=== PATIENT | male | born 1960 | race Caucasian/White ===

== ENCOUNTER 2017-04-27 15:18 | Inpatient (IN) ==
[2017-04-27] MEDS ORDERED: Vancomycin 750 MG in D5% in Water 250 ML IVPB ONE (15:46)
[2017-04-27] MEDS ORDERED: Levofloxacin 750 MG/150 ML 750 MG/150 ML BAG IVPB ONE (15:46)
[2017-04-27] MEDS ORDERED: Aztreonam 2,000 MG in Water for inj. (sterile) 20 ML IVP ONE (15:46)
--- NOTE | 2017-04-27 15:57 | Emergency Department Note ---
Disposition Clinical Impression: RACHEL (acute kidney injury), Hypomagnesemia, Hypocalcemia Disposition: Admitted As Inpatient Condition: Fair Referrals: Richa Baron DO [Primary Care Provider] - Forms: ED Satisfaction Letter Time of Disposition: 17:39 General Adult HPI - General Chief complaint: ED Recheck/Abnormal Lab/Rx Stated complaint: Kidney failure Time Seen by Provider: 04/27/17 15:34 Source: patient, family Mode of arrival: ambulatory Limitations: no limitations Nursing Notes Reviewed: Yes Vital Signs Reviewed: Yes - History of Present Illness HPI Narrative: 57-year-old male who presents to the emergency department complaining of abdominal pain and cough and fever. Patient does have lung cancer and currently is undergoing immunotherapy. He has had this for 2 years. He did fail chemotherapy as they said he almost last time he was on that this is approximately 1 year ago. Patient states the last 3-4 days he has not felt well. They do have a fever of 102 as a maximum. He was seen by his primary care physician yesterday where they did a chest x-ray basic labs as well as a stool sample. A stool sample was dropped off today and results are pending. He went to the cancer facility today where they noticed he had an elevated creatinine sent him here for evaluation and most likely admission for fluids and antibiotics. Patient states he was having bilateral lower abdominal abdominal pain. Says that he has had diarrhea but no constipation. No pain with urination. Patient states he is having lower chest pain that only occurs when he is coughing. He says he has had cardiac chest pain before and this is nothing like this according to the patient. Says only occurs when he is coughing. She is unable take a big deep breath. He feels like he has to cough stuff up but nothing comes out. He is not having any purulent sputum. Patient otherwise is not having any complaints including headache, blurry vision, neck pain, back pain, pain or tingling of the arms or legs, generalized weakness, nausea or vomiting. Pain Scale: 0 - Related Data Home Medications Medication Instructions Recorded Confirmed Atorvastatin [Lipitor] 40 mg PO QAM 05/20/15 04/27/17 Paroxetine [Paxil] 30 mg PO DAILY 02/11/17 04/27/17 Sodium Chloride 1 tab PO BID 03/25/17 04/27/17 hydrALAZINE [HydrALAZINE] 25 mg PO TID 03/25/17 04/27/17 Cholestyramine 1 packet PO DAILY 04/27/17 04/27/17 Potassium Chloride [Klor-Con] 20 meq PO DAILY 04/27/17 04/27/17 Previous Rx's Medication Instructions Recorded Metoprolol XL (24 HR) Succ [Toprol 12.5 mg PO QAM #45 tab.er.24h 10/07/16 Xl] Folic Acid 1 tab PO DAILY #30 tablet 01/19/17 Thiamine (B-1) [Vitamin B-1] 100 mg PO DAILY #30 tablet 02/25/17 Omeprazole 20 mg PO DAILY #90 tablet. 03/25/17 Pantoprazole Sodium [Protonix] 40 mg PO DAILY #30 tablet. 03/31/17 Ferrous Sulfate [Iron] 325 mg PO DAILY #30 tablet 04/12/17 Lisinopril [Zestril] 20 mg PO DAILY #30 tab 04/12/17 Allergies Allergy/AdvReac Type Severity Reaction Status Date / Time Penicillins [PCN] Allergy Hives Verified 04/27/17 15:25 Review of Systems: 10 point review of systems done and negative unless otherwise stated in history of present illness. All systems ED: reviewed and negative except as stated. Review of Systems: As Per HPI Past Medical History - Past Medical History Attestation: Yes The following information was validated with the patient. Medical history: Reports: cancer, COPD, coronary artery disease, GERD, myocardial infarction, other Surgical history: Reports: herniorrhaphy (x2) Psychiatric history: Reports: no psych history - Social History Smoking Status: Current some day smoker Smokeless Tobacco Status: No Alcohol use: Reports: occasionally Drug use: Reports: none Physical Exam - General Limitations: no limitations General appearance: alert, in no apparent distress - Head Head exam: atraumatic, normocephalic, normal inspection - Eye Eye exam: Present: normal appearance, PERRL, EOMI - ENT ENT exam: normal exam, normal oropharynx, mucous membranes moist - Neck Neck exam: Present: normal inspection, full ROM, trachea midline - Chest Chest inspection: Present: normal inspection, symmetric chest wall rise - Respiratory Respiratory exam: Present: normal lung sounds bilaterally, wheezes (Mild wheezes throughout.). Absent: respiratory distress, accessory muscle use, prolonged expiratory phase - Cardiovascular Cardiovascular exam: Present: regular rate, normal rhythm, normal heart sounds - Abdominal Exam Abdominal exam: Present: soft, tenderness, normal bowel sounds. Absent: distention, guarding, rebound, rigidity Abdominal tenderness: Present: diffuse, moderate - Extremities Exam Extremities exam: Present: normal inspection, full ROM. Absent: tenderness, pedal edema - Expanded Lower Extremity Exam Neurovascular/Tendon exam: Present: normal capillary refill. Absent: pulse deficit, motor deficit, sensory deficit, tendon deficit - Back Exam Back exam: Present: normal inspection, full ROM. Absent: tenderness, CVA tenderness (R), CVA tenderness (L) - Neurological Exam Neurological exam: Present: alert, oriented X3 - Skin Skin exam: Present: warm, dry, intact, normal color Course Course Narrative: 57-year-old male presents to the ED with elevated creatinine he has a lung cancer patient who is currently getting immunotherapy. Patient was mildly tachycardic and mildly hypotensive at 108/60 after we rechecked one when he got back to his room. Due to the elevated creatinine and immunocompromise we will treat this patient as a septic patient does not currently in septic shock. We will get CBC, BMP, lactate, troponin, hepatic panel, blood cultures, urinalysis , chest x-ray, CT abdomen and pelvis without contrast. We will give him 2 L IV fluids we will place a second large-bore IV. We will also start him on most likely H Medications including Levaquin, aztreonam, vancomycin due to patient having a penicillin allergy. Patient's most likely disposition will be admission. Vital Signs Temperature 97.8 F 04/27/17 15:25 Pulse Rate 96 04/27/17 15:25 Respiratory Rate 16 04/27/17 15:25 Blood Pressure 83/60 04/27/17 15:25 O2 Sat by Pulse Oximetry 99 04/27/17 15:25 Temperature 97.8 F 04/27/17 15:25 Pulse Rate 93 04/27/17 17:02 Respiratory Rate 18 04/27/17 17:02 Blood Pressure 101/69 04/27/17 17:02 O2 Sat by Pulse Oximetry 100 04/27/17 17:02 Oxygen Delivery Oxygen Delivery Room Air Medical Decision Making - [facility] Narrative Medical decision making narrative: 57-year-old male presenting to the emergency department with cough congestion as well as generalized not feeling well. He also is complaining of abdominal pain. He has had no nausea or vomiting. He does have lung cancer and is on immunotherapy. He came here because elevated creatinine. Upon coming here he was tachycardic as well as mildly hypotensive at 108/60 so we decided to start the sepsis protocol and we started him on vancomycin, Levaquin, aztreonam due to him having a penicillin allergy. Once we found out that there was no source of infection we felt that we could stop the vancomycin the Levaquin and aztreonam had already been given at this time. Did do basic labs. We will see a CT abdomen and pelvis which came back showing possible enteritis but no other acute findings. Patient's lab dysuria and elevated creatinine at 4.9 which is abnormal for him. Patient does have acute kidney injury. He also had low magnesium as well as calcium. We did replenish these. N did give him 2 L of fluid for jhis RACHEL. Spoke with the hospitalist Dr. Navarro who agreed to admit the patient for acute kidney injury, hypomagnesemia, hypocalcemia. Explained this to the patient's family and they agree with this plan. They are okay with this. Patient and family are okay with this plan. Patient is now admitted to the hospital service in stable condition. Chest X-Ray 04/27/17 15:47 IMPRESSION: Stable chest without acute process and chronic findings as described. D/ / Liz Thayer MD / Liz Thayer MD Interpreting Provider: Liz Thayer MD Abdomen/Pelvis CT 04/27/17 15:51 IMPRESSION: 1. Fluid-filled loops of distal small bowel and colon with no evidence of obstruction. Pattern may suggest enterocolitis. 2. No significant mucosal changes are identified within the bowel. 3. Chronic pleural thickening is stable in the lower right chest. D/ / Gustavo Gutierrez MD / Gustavo Gutierrez MD Interpreting Provider: Gustavo Gutierrez MD - Medical Records Medical records reviewed: Yes I reviewed the patient's medical records. - Lab Data Lab results reviewed: Yes I reviewed the patient's lab results. Result diagrams: 04/27/17 16:22 04/27/17 16:22 Lab Results 04/27/17 04/27/17 04/27/17 Range/Units 15:45 16:22 16:22 WBC 6.5 (4.3-11.1) K/mcL RBC 3.93 L (4.19-5.50) M/mcL Hgb 13.1 (12.9-16.9) g/dL Hct 39.0 (37.5-50.1) % MCV 99.2 (83.0-100.0) fL MCH 33.3 (28.0-33.3) pg MCHC 33.6 (31.6-35.5) g/dL RDW 13.2 (11.5-14.5) % Plt Count 264 (140-400) K/mcL MPV 8.7 L (9.4-12.4) fL Immature Gran % 0.5 (0-4) % Seg Neutrophils % 67.5 % Lymphocytes % 20.0 % Monocytes % 8.3 % Eosinophils % 2.9 % Basophils % 0.8 % Neutrophils # 4.4 (1.6-8.9) K/mcL Lymphocytes # 1.3 (0.6-4.6) K/mcL Monocytes # 0.5 (0.0-1.3) K/mcL Eosinophils # 0.2 (0.0-0.6) K/mcL Basophils # 0.1 (0.0-0.2) K/mcL PT 12.3 H (9.4-12.1) Seconds INR 1.1 APTT 30.6 (26.0-36.0) Seconds Sodium (136-145) mEq/L Potassium (3.5-4.5) mEq/L Chloride (98-109) mEq/L Carbon Dioxide (19-29) mEq/L BUN (8-26) mg/dL Creatinine (0.72-1.25) mg/dL Est GFR ( Amer) (> 60) Est GFR (Non-Af Amer) (> 60) BUN/Creatinine Ratio (6-26) Glucose (70-99) mg/dL Calculated Osmolality (280-300) Lactic Acid (0.5-2.2) mmol/L Calcium (8.6-10.8) mg/dL Phosphorus (2.3-4.7) mg/dL Magnesium (1.6-2.6) mg/dL Total Bilirubin (0.2-1.2) mg/dL Direct Bilirubin (0.0-0.5) mg/dL Indirect Bilirubin (0.0-1.2) mg/dL AST (5-34) Units/L ALT (0-55) Units/L Alkaline Phosphatase (38-126) Units/L Troponin I (0-0.03) ng/mL Serum Total Protein (6.0-8.3) g/dL Albumin (3.5-5.0) g/dL Globulin (2.4-3.5) g/dL Albumin/Globulin Ratio (1.1-2.2) Ur Specimen Adequacy See below A Urine Color Yellow (Yellow) Urine Clarity Cloudy A (Clear) Urine pH 6.0 (5.0-8.0) pH Units Ur Specific Weston 1.029 H (1.010-1.025) Urine Protein 100 H (Neg-Trace) mg/dL Urine Glucose (UA) Normal (Normal) mg/dL Urine Ketones Negative (Negative) mg/dL Urine Blood Negative (Negative) Urine Nitrite Negative (Negative) Urine Bilirubin Small H (Negative) Urine Urobilinogen Normal (Normal) mg/dL Ur Leukocyte Esterase Negative (Negative) Urine Microscopic RBC 0-3 (0-3) per hpf Urine Microscopic WBC 5-15 H (0-3) per hpf Ur Squamous Epith Cells Many H (None-Few) per lpf Amorphous Sediment Few (Few) Urine Bacteria Moderate H (None-Few) per hpf Hyaline Casts Few (None-Few) per lpf Ur Culture Indicated? NO (NO) 04/27/17 04/27/17 04/27/17 Range/Units 16:22 16:22 16:22 WBC (4.3-11.1) K/mcL RBC (4.19-5.50) M/mcL Hgb (12.9-16.9) g/dL Hct (37.5-50.1) % MCV (83.0-100.0) fL MCH (28.0-33.3) pg MCHC (31.6-35.5) g/dL RDW (11.5-14.5) % Plt Count (140-400) K/mcL MPV (9.4-12.4) fL Immature Gran % (0-4) % Seg Neutrophils % % Lymphocytes % % Monocytes % % Eosinophils % % Basophils % % Neutrophils # (1.6-8.9) K/mcL Lymphocytes # (0.6-4.6) K/mcL Monocytes # (0.0-1.3) K/mcL Eosinophils # (0.0-0.6) K/mcL Basophils # (0.0-0.2) K/mcL PT (9.4-12.1) Seconds INR APTT (26.0-36.0) Seconds Sodium 142 (136-145) mEq/L Potassium 4.2 (3.5-4.5) mEq/L Chloride 109 (98-109) mEq/L Carbon Dioxide 18 L (19-29) mEq/L BUN 36 H (8-26) mg/dL Creatinine 4.90 H (0.72-1.25) mg/dL Est GFR ( Amer) 15 L (> 60) Est GFR (Non-Af Amer) 12 L (> 60) BUN/Creatinine Ratio 7 (6-26) Glucose 100 H (70-99) mg/dL Calculated Osmolality 302 H (280-300) Lactic Acid 1.8 (0.5-2.2) mmol/L Calcium 7.5 L (8.6-10.8) mg/dL Phosphorus 4.8 H (2.3-4.7) mg/dL Magnesium < 0.7 L (1.6-2.6) mg/dL Total Bilirubin 0.3 (0.2-1.2) mg/dL Direct Bilirubin 0.1 (0.0-0.5) mg/dL Indirect Bilirubin 0.2 (0.0-1.2) mg/dL AST 40 H (5-34) Units/L ALT 42 (0-55) Units/L Alkaline Phosphatase 101 (38-126) Units/L Troponin I 0.01 (0-0.03) ng/mL Serum Total Protein 7.9 (6.0-8.3) g/dL Albumin 3.7 (3.5-5.0) g/dL Globulin 4.2 H (2.4-3.5) g/dL Albumin/Globulin Ratio 0.9 L (1.1-2.2) Ur Specimen Adequacy Urine Color (Yellow) Urine Clarity (Clear) Urine pH (5.0-8.0) pH Units Ur Specific Weston (1.010-1.025) Urine Protein (Neg-Trace) mg/dL Urine Glucose (UA) (Normal) mg/dL Urine Ketones (Negative) mg/dL Urine Blood (Negative) Urine Nitrite (Negative) Urine Bilirubin (Negative) Urine Urobilinogen (Normal) mg/dL Ur Leukocyte Esterase (Negative) Urine Microscopic RBC (0-3) per hpf Urine Microscopic WBC (0-3) per hpf Ur Squamous Epith Cells (None-Few) per lpf Amorphous Sediment (Few) Urine Bacteria (None-Few) per hpf Hyaline Casts (None-Few) per lpf Ur Culture Indicated? (NO) - Radiology Data Radiology results reviewed: Yes I reviewed the patient's radiology results. - EKG Data EKG #1 EKG attestation: Yes I reviewed and interpreted this EKG. EKG results narrative: EKG done at 1606 revealed myself and attending shows sinus tachycardia at a rate of 108, DC interval 120, QRS 96, QTC 400 with a normal axis. No signs of ST changes, T-wave abnormalities, heart strain or hypertrophy, heart block, WPW/ Brugada syndrome. This is unchanged when compared with old EKG done 01/14/17. Attestation Statement - Attestation Attestation: I examined this patient and my medical decision-making was reviewed with the Resident Physician. I agree with the documented findings, disposition and treatment plan as described except to the extent set forth below. [id number]-[id number] time provided Patient sent by his oncologist due to an acutely elevated creatinine of 4. The patient has a history of COPD and lung cancer. He failed previous chemotherapy. He is thin and nervous appearing on exam. Blood pressure 108 systolic per my measurement. He does not look toxic
[2017-04-27 16:05] LABS: Bilirubin,Urine Small (Negative); Blood,Urine Negative (Negative); Clarity,Urine Cloudy (Clear); Color,Urine Yellow (Yellow); Glucose,Urine (UA) Normal (Normal); Ketones,Urine Negative (Negative); Leukocyte Esterase,Urine Negative (Negative); Nitrite,Urine Negative (Negative); Protein,Urine 100 mg/dL (Neg-Trace); Specific Gravity,Urine 1.029 (1.010-1.025); Urobilinogen,Urine Normal (Normal)
[2017-04-27 16:07] LABS: RBC,Urine 0-3 per hpf (0-3); Squamous Epithelial Cell,Urine Many per lpf (None-Few)
[2017-04-27] MEDS: 0.9 % Sodium Chloride 1,000 ML IVC SCH (16:15)
[2017-04-27 16:29] LABS: Amorphous Sediment,Urine Few (Few); Bacteria,Urine Moderate per hpf (None-Few); Hyaline Casts,Urine Few per lpf (None-Few)
[2017-04-27 16:31] LABS: Basophils # 0.1 K/mcL (0.0-0.2); Basophils % 0.8 %; Eosinophils # 0.2 K/mcL (0.0-0.6); Eosinophils % 2.9 %; Hemoglobin 13.1 g/dL (12.9-16.9); Immature Granulocytes % 0.5 % (0-4); Lymphocytes # 1.3 K/mcL (0.6-4.6); Mean Corpuscular HGB Conc 33.6 g/dL (31.6-35.5); Mean Corpuscular Hemoglobin 33.3 pg (28.0-33.3); Mean Corpuscular Volume 99.2 fL (83.0-100.0); Mean Platelet Volume 8.7 fL (9.4-12.4); Monocytes # 0.5 K/mcL (0.0-1.3); Monocytes % 8.3 %; Neutrophils # 4.4 K/mcL (1.6-8.9); Platelet Count 264 K/mcL (140-400); Red Blood Count 3.93 M/mcL (4.19-5.50); Red Cell Distribution Width 13.2 % (11.5-14.5); Segmented Neutrophils % 67.5 %
[2017-04-27 16:36] LABS: INR 1.1; Prothrombin Time 12.3 Seconds (9.4-12.1)
[2017-04-27 16:39] LABS: Activated Partial Thrombo Time 30.6 Seconds (26.0-36.0)
[2017-04-27 16:46] LABS: Alanine Aminotransferase 42 Units/L (0-55); Albumin 3.7 g/dL (3.5-5.0); Albumin/Globulin Ratio 0.9 (1.1-2.2); Alkaline Phosphatase 101 Units/L (38-126); Aspartate Amino Transferase 40 Units/L (5-34); BUN/Creatinine Ratio 7 (6-26); Bilirubin,Direct 0.1 mg/dL (0.0-0.5); Bilirubin,Indirect 0.2 mg/dL (0.0-1.2); Bilirubin,Total 0.3 mg/dL (0.2-1.2); Blood Urea Nitrogen 36 mg/dL (8-26); Calcium 7.5 mg/dL (8.6-10.8); Carbon Dioxide 18 mEq/L (19-29); Chloride 109 mEq/L (98-109); Globulin 4.2 g/dL (2.4-3.5); Glucose 100 mg/dL (70-99); Osmolality,Calculated 302 (280-300); Phosphorous 4.8 mg/dL (2.3-4.7); Potassium 4.2 mEq/L (3.5-4.5); Sodium 142 mEq/L (136-145); Total Protein 7.9 g/dL (6.0-8.3); eGFR For African Americans 15 (> 60); eGFR For Non-African Americans 12 (> 60)
[2017-04-27 16:47] LABS: Magnesium < 0.7 mg/dL (1.6-2.6)
[2017-04-27] MEDS ORDERED: Calcium Gluconate 1,000 MG in D5% in Water 100 ML IVPB ONE (17:04)
[2017-04-28] MEDS ORDERED: Naloxone 0.4 MG/ML INJ IVP PRN ×2 (00:36→00:42)
--- NOTE | 2017-04-28 00:48 | Internal Med History&Physical ---
Date of Encounter: 04/27/17 Time of Encounter: 10:00 Assessment and Plan (1) Colitis Current visit: Yes Status: Acute suspect related to PD1 therapy. Consult oncology to eval empiric cipro/flagyl IV, NPO, IVF empiric steroids IV lower suspicion for infectious given clinical course but will send stool studies (2) Acute kidney injury Current visit: Yes Status: Acute suspect pre-renal with diarrhea-profuse , prelim urine lytes consult renal dacosta for I&Os cannot r/o immune nephritis associated with PD1 agent trend Cr , follow clinical course (3) Non-small cell cancer of right lung Current visit: No Status: Chronic hold therapy consult onc Internal Medicine - H&P: HPI Chief complaint: profused diarrhea History of present illness: Patient seen on 04/27/17 at 10 pm Mr. Jimenez is a 57 year old male with lung cancer and getting immunotherapy q2 weeks for the last 1.5 years who presents to the ED after abnormal lab with RACHEL in the setting of diarrhea 15-20x a day of watery , non-bloody diarrhea for the last 1.5 month. Associated with corona-umbilical stomach ache, rate 8/10 with no improving factors. Worsened wth time. Denies worsening SOB, has cough which is better Past Med Surg Social Fam HX - Past Medical History Medical history: cancer, COPD, coronary artery disease, GERD, myocardial infarction, other Psychiatric history: no psych history - Past Surgical History Surgical History: herniorrhaphy - Social History Smoking Status: Current some day smoker Smokeless Tobacco Status: No Alcohol use: occasionally Drug use: none - Family History Mother Family Member Ethnicity: Non- Living Status: Hx Family Cancer: Yes (Colon cancer.) Father Family Member Ethnicity: Non- Living Status: Hx Family Cardiac Disorders: Yes (Aneurysm) Brother Family Member Ethnicity: Non- Living Status: Hx Family Respiratory Disorders: Yes (COPD) Sister Family Member Ethnicity: Non- Living Status: Internal Medicine - H&P: Meds Atorvastatin [Lipitor] 40 mg PO QAM 05/20/15 [History] Metoprolol XL (24 HR) Succ [Toprol Xl] 12.5 mg PO QAM #45 tab.er.24h 10/07/16 [ Rx] Folic Acid 1 tab PO DAILY #30 tablet 01/19/17 [Rx] Paroxetine [Paxil] 30 mg PO DAILY 02/11/17 [History] Thiamine (B-1) [Vitamin B-1] 100 mg PO DAILY #30 tablet 02/25/17 [Rx] Omeprazole 20 mg PO DAILY #90 tablet. 03/25/17 [Rx] Sodium Chloride 1 tab PO BID 03/25/17 [History] hydrALAZINE [HydrALAZINE] 25 mg PO TID 03/25/17 [History] Pantoprazole Sodium [Protonix] 40 mg PO DAILY #30 tablet. 03/31/17 [Rx] Ferrous Sulfate [Iron] 325 mg PO DAILY #30 tablet 04/12/17 [Rx] Lisinopril [Zestril] 20 mg PO DAILY #30 tab 04/12/17 [Rx] Cholestyramine 1 packet PO DAILY 04/27/17 [History] Potassium Chloride [Klor-Con] 20 meq PO DAILY 04/27/17 [History] 3 Allergy/AdvReac Type Severity Reaction Status Date / Time Penicillins [PCN] Allergy Hives Verified 04/27/17 15:25 All Systems PM: A 10-system review of systems was performed and is negative for pertinent findings except as documented above in the HPI. Review of systems: ROS 14 point review of systems reviewed as best as possible given presentation. Pertinent positive or negative as per HPI or otherwise reviewed as negative - Constitutional Vitals: Temp Pulse Resp BP Pulse Ox 98.1 F 83 16 106/70 94 04/27/17 22:55 04/27/17 22:55 04/27/17 22:55 04/27/17 22:55 04/27/17 22:55 Exam: General - AAO x 3 Psych - Appropriate affect/speech. No agitation Eyes - SANTOSH. Eye lids intact. No scleral icterus Heart - Sinus. RRR. S1 and S2 present. No added HS/murmurs appreciated. No elevated JVD appreciated. Lung - Adequate air entry b/l, No crackles/wheezes appreciated GI - Soft, has mild corona-umbilical tendernerss. No guarding or rigidity. No hepatosplenomegaly/ascites. BS+ - No CVA/suprapubic tenderness or palpable bladder distension Skin - Intact. No rash/petechiae/ecchymosis. Warm extremities MSK - Joints with normal ROM. No joint swellings Internal Med - H&P Results - Labs CBC & Chem 7: 04/27/17 16:22 04/27/17 16:22
[2017-04-28] MEDS: Ringers Solution, Lactated 1,000 ML IVC SCH ×2 (01:57→09:08)
[2017-04-28 05:01] LABS: Basophils % 0.5 %; Eosinophils # 0.2 K/mcL (0.0-0.6); Eosinophils % 4.4 %; Hematocrit 31.8 % (37.5-50.1); Immature Granulocytes % 0.5 % (0-4); Lymphocytes % 24.1 %; Mean Corpuscular HGB Conc 32.7 g/dL (31.6-35.5); Mean Corpuscular Hemoglobin 32.5 pg (28.0-33.3); Mean Corpuscular Volume 99.4 fL (83.0-100.0); Mean Platelet Volume 8.7 fL (9.4-12.4); Monocytes # 0.5 K/mcL (0.0-1.3); Monocytes % 11.1 %; Neutrophils # 2.6 K/mcL (1.6-8.9); Platelet Count 202 K/mcL (140-400); Red Cell Distribution Width 13.1 % (11.5-14.5); Segmented Neutrophils % 59.4 %
[2017-04-28 05:04] LABS: Hemoglobin 10.4 g/dL (12.9-16.9)
[2017-04-28 05:10] LABS: Albumin 2.9 g/dL (3.5-5.0); Bilirubin,Direct 0.1 mg/dL (0.0-0.5); Bilirubin,Indirect 0.1 mg/dL (0.0-1.2); Bilirubin,Total 0.2 mg/dL (0.2-1.2); Calcium 7.6 mg/dL (8.6-10.8); Magnesium 1.1 mg/dL (1.6-2.6)
[2017-04-28 05:13] LABS: Total Protein 5.9 g/dL (6.0-8.3)
[2017-04-28] MEDS: *HR* Heparin 5,000 UNIT/ML VIAL SQ SCH ×2 (05:39→17:28)
--- NOTE | 2017-04-28 08:16 | Event Note ---
Date of Encounter: 04/28/17 Time of Encounter: 08:[address] Howard's. 3B charge nurse Yazmin notified and Dr. Romano notified.
[2017-04-28] MEDS: 0.9 % Sodium Chloride 1,000 ML IVC SCH (09:04)
[2017-04-28] MEDS: MetroNIDAZOLE 500 MG/100 ML 500 MG/100 ML BAG IVPB SCH ×2 (09:08→17:27)
[2017-04-28] MEDS: Metoprolol XL (24 HR) Succ 25 MG TAB.ER.24H PO SCH (09:09)
[2017-04-28] MEDS: methylPREDNISolone 125 MG/2 ML VIAL IVP SCH ×2 (09:09→22:33)
[2017-04-28] MEDS ORDERED: 0.9 % Sodium Chloride 1,000 ML IVC SCH (10:00)
[2017-04-28 12:15] LABS: Protein/Creatinine Ratio,Urine 0.24 mg/mg (0-0.20)
--- NOTE | 2017-04-28 12:19 | Gastroenterology Consult Note ---
<Michael Mccollum - Last Filed: 04/28/17 12:16> Date of Encounter: 04/28/17 Time of Encounter: 11:05 - Assessment and plan (1) Colitis Current Visit: Yes Status: Acute Assessment and plan: CT A/P showed fluid filled loops of distal small bowel and colon, no obstruction suggestive of enterocolitis. No mucosal changes noted in the bowel. Continue Cipro and Flagyl for now. (2) Diarrhea Current Visit: Yes Status: Acute Assessment and plan: Pt with 15-20 episodes of diarrhea with no melena or hematochezia. Complete stool testing. Recommend daily fiber supplement for now. If stool testing negative, consider Imodium 1-2 tablets TID. Qualifiers: Diarrhea type: unspecified type Qualified Code(s): R19.7 - Diarrhea, unspecified (3) History of lung cancer Current Visit: No Status: Acute - Time Spent With Patient Total time spent is greater than 50% in coordination of care (as documented) at patient's floor/unit and/or counseling patient: GI History of Present Illness - Data of Consult Patient: new to practice Consult date: 04/28/17 Requesting Physician: Thu Candelario CNP - Consult Narrative Reason for consult: colitis History of present illness: Mr. Jimenez is a 57 year old male with PMHx of lung cancer (receiving immunotherapy), COPD, CAD, GERD, AL presented to the ED with abdominal pain, diarrhea, cough, and fever. [facility] with elevated creatinine. On arrival he was tachycardic and mildly hypotensive, and was started on IV antibiotics. CT A/P showed fluid filled loops of distal small bowel and colon, no obstruction suggestive of enterocolitis. No mucosal changes noted in the bowel. He started on Cipro and Flagyl for the enteritis. Stool studies have been ordered. He reports 15-20 episodes of diarrhea daily for the past "couple of weeks". he denies melena or hematochezia. Procedures: EGD 01/08/2015 Dr. Olivares: Irregular Z-line, small hiatus hernia, acute gastritis. NSAIDs: None Anticoagulation: None Past Med Surg Social Fam HX - Past Medical History Medical history: cancer, COPD, coronary artery disease, GERD, myocardial infarction, other Psychiatric history: no psych history - Past Surgical History Surgical History: herniorrhaphy - Social History Smoking Status: Current some day smoker Smokeless Tobacco Status: No Alcohol use: occasionally Drug use: none - Family History Mother Family Member Ethnicity: Non- Living Status: Hx Family Cancer: Yes (Colon cancer.) Father Family Member Ethnicity: Non- Living Status: Hx Family Cardiac Disorders: Yes (Aneurysm) Brother Family Member Ethnicity: Non- Living Status: Hx Family Respiratory Disorders: Yes (COPD) Sister Family Member Ethnicity: Non- Living Status: - Gastrointestinal Gastrointestinal: Present: as per HPI - Constitutional Constitutional: as per HPI - EENT Eyes: as per HPI Ears: Present: as per HPI Nose, mouth and throat: Present: as per HPI - Cardiovascular Cardiovascular ROS: Present: as per HPI - Respiratory Respiratory IM: Present: as per HPI - Genitourinary Genitourinary: Absent: change in color, Urinary frequency - Neurological ROS Neurological GI: Present: as per HPI - Hematologic/Lymphatic Hematologic/Lymphatic pediatric: Present: as per HPI - Musculoskeletal Musculoskeletal ROS GI: Present: as per HPI - Integumentary Integumentary GI: Present: as per HPI - Psychiatric ROS Psychiatric GI: Present: as per HPI - Endocrine Endocrine IM: Present: as per HPI - Constitutional Vitals: Temp Pulse Resp BP Pulse Ox 97.9 F 82 16 123/75 92 04/28/17 10:51 04/28/17 10:51 04/28/17 10:51 04/28/17 10:51 04/28/17 10:51 General appearance: Present: cooperative, A&O X 3, no acute distress, answers questions appropriately - Head Head exam: Present: atraumatic, normocephalic - Eye Eye exam: Present: normal appearance, sclera anicteric - ENT ENT exam: Present: mucous membranes dry - Neck Neck exam general surgery: Present: normal inspection, trachea midline - Respiratory Respiratory exam: Present: CTAB - Cardiovascular Cardiovascular exam: Present: RRR, +S1, +S2 - GI/Abdominal GI/Abdominal exam: Present: soft, tenderness (generalized), no peritoneal signs. Absent: distended, firm, guarding - Rectal Rectal exam: Present: deferred - Extremities Exam Extremities exam: Present: warm - Neurological Exam Neurological exam: Present: no focal deficits - Psychiatric Psychiatric exam: Present: normal affect, normal mood - Skin Skin exam: Present: dry, intact, normal color, warm Results - Labs CBC & Chem 7: 04/28/17 04:40 04/28/17 04:40 Labs: Last Result Calcium 7.6 mg/dL (8.6-10.8) L 04/28/17 04:40 Troponin I 0.01 ng/mL (0-0.03) 04/27/17 16:22 Entire Visit Hgb 10.4 g/dL (12.9-16.9) L D 04/28/17 04:40 Hct 31.8 % (37.5-50.1) L 04/28/17 04:40 PT 12.3 Seconds (9.4-12.1) H 04/27/17 16:22 Total Bilirubin 0.2 mg/dL (0.2-1.2) 04/28/17 04:40 AST 26 Units/L (5-34) 04/28/17 04:40 ALT 29 Units/L (0-55) 04/28/17 04:40 - ABG ABG results: PT/INR, D-dimer PT 12.3 Seconds (9.4-12.1) H 04/27/17 16:22 Consult Discharge Plan - Plan Referrals: Richa Baron DO [Primary Care Provider] - <Hector Hsu - Last Filed: 04/28/17 18:02> Date of Encounter: 04/28/17 Time of Encounter: 18:00 - Time Spent With Patient Total time spent is greater than 50% in coordination of care (as documented) at patient's floor/unit and/or counseling patient: GI History of Present Illness - Data of Consult Requesting Physician: Thu Candelario CNP - Consult Narrative History of present illness: Mr. Jimenez is a 57 year old male - Constitutional Vitals: Temp Pulse Resp BP Pulse Ox 97.9 F 85 16 136/84 95 04/28/17 15:38 04/28/17 15:38 04/28/17 15:38 04/28/17 15:38 04/28/17 15:38 Results - Labs CBC & Chem 7: 04/28/17 04:40 04/28/17 04:40 Labs: Last Result Calcium 7.6 mg/dL (8.6-10.8) L 04/28/17 04:40 Troponin I 0.01 ng/mL (0-0.03) 04/27/17 16:22 Entire Visit Hgb 10.4 g/dL (12.9-16.9) L D 04/28/17 04:40 Hct 31.8 % (37.5-50.1) L 04/28/17 04:40 PT 12.3 Seconds (9.4-12.1) H 04/27/17 16:22 Total Bilirubin 0.2 mg/dL (0.2-1.2) 04/28/17 04:40 AST 26 Units/L (5-34) 04/28/17 04:40 ALT 29 Units/L (0-55) 04/28/17 04:40 - ABG ABG results: PT/INR, D-dimer PT 12.3 Seconds (9.4-12.1) H 04/27/17 16:22 - Attending Attestation I examined this patient and my medical decision-making was reviewed with the Resident Physician. I agree with the documented findings, disposition and treatment plan as described except to the extent set forth below.
--- NOTE | 2017-04-28 14:15 | Oncology Inp Consult Note ---
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 Agree with steroids. His bowel movements are significantlky reduced and already become more formed at this time. I do not suspect any infectious etiology and thus his abx can likely be discontinued. continue steroids and plan for at least 2 week taper after discharge. (2) Prerenal azotemia Status: Acute Assessment and plan: I dont suspect immune mediated nephritis. Rather, his frequency of diarrhea worsed in the past 7-10 days prior to admission. given his preexisting renal dysfunction and the ensuing dehydration and concomittant weight loss, it is not surprising for someone to have developed a creatinine of 4.8. Therefore, agree with hydration. (3) Acute kidney injury Status: Acute Assessment and plan: improving. Creatinein 4.05 down from 4.8 on admission. continue to monitor. (4) Lung cancer Status: Chronic Assessment and plan: He will need his nivolumab on hold for the moment. Given that this is his first episode of an immune mediated problem and that he has responded so well to steroids, I anticipate that he should be able to contiue nivolumab after a steroid taper. Of course, I will defer that ultimate decision to his primary oncologist Qualifiers: Laterality: right Qualified Code(s): C34.81 - Malignant neoplasm of overlapping sites of right bronchus and lung (5) CKD (chronic kidney disease) stage 3, GFR 30-59 ml/min Status: Chronic Assessment and plan: as above (6) Adenocarcinoma of right lung Status: Chronic Assessment and plan: CT C/a/p KURT as of last evaluation. - Data of Consult Requesting Physician: Thu Candelario CNP Primary Care Provider: Richa Baron, - Consult Narrative Reason for consult: diarrhea, renal failure while on nivolumab History of present illness: Mr. Jimenez is a 57 year old male who is on nivolumab for metastatic NSCLC and was in [facility] until 2months ago when he started to develop diarrhea. It was very watery. He would have 15-20 BMs per day. He indicated to his that he did not want the doctors to know. His last dose of nivolumab was 1 month ago and he missed his dose 2 weeks ago because of scheduling issues. 3 weeks ago, he informed his group exercise manager about the diarrhea and was recommended cholestyramine. It did not work. Then 1 weeks ago, he developed a viral infection contracted from his . THe diarrhe became very intense at that time. He has lost 6 pounds in 1 week. He came to clinic yesterday for his next nivolumab infusion but was noted to have a Creatinine of 4.8. He was thus sent to the ER and was admitted for likely nivolumab induced colitis and possible nivolumab induced nephritis vs. pre-renal azotemia. He was then started on methylpred this morning. He has had only 3 BM 3x since this time. The BM are still loose but not watery. We are consulted regarding possible sequelae of nivolumab. Past Med Surg Social Fam HX - Past Medical History Medical history: cancer, COPD, coronary artery disease, GERD, myocardial infarction, other Psychiatric history: no psych history - Past Surgical History Surgical History: herniorrhaphy - Social History Smoking Status: Current some day smoker Smokeless Tobacco Status: No Alcohol use: occasionally Drug use: none - Family History Mother Family Member Ethnicity: Non- Living Status: Hx Family Cancer: Yes (Colon cancer.) Father Family Member Ethnicity: Non- Living Status: Hx Family Cardiac Disorders: Yes (Aneurysm) Brother Family Member Ethnicity: Non- Living Status: Hx Family Respiratory Disorders: Yes (COPD) Sister Family Member Ethnicity: Non- Living Status: Medications and Allergies Atorvastatin [Lipitor] 40 mg PO QAM 05/20/15 [History] Metoprolol XL (24 HR) Succ [Toprol Xl] 12.5 mg PO QAM #45 tab.er.24h 10/07/16 [ Rx] Folic Acid 1 tab PO DAILY #30 tablet 01/19/17 [Rx] Paroxetine [Paxil] 30 mg PO DAILY 02/11/17 [History] Thiamine (B-1) [Vitamin B-1] 100 mg PO DAILY #30 tablet 02/25/17 [Rx] Omeprazole 20 mg PO DAILY #90 tablet. 03/25/17 [Rx] Sodium Chloride 1 tab PO BID 03/25/17 [History] hydrALAZINE [HydrALAZINE] 25 mg PO TID 03/25/17 [History] Pantoprazole Sodium [Protonix] 40 mg PO DAILY #30 tablet. 03/31/17 [Rx] Ferrous Sulfate [Iron] 325 mg PO DAILY #30 tablet 04/12/17 [Rx] Lisinopril [Zestril] 20 mg PO DAILY #30 tab 04/12/17 [Rx] Cholestyramine 1 packet PO DAILY 04/27/17 [History] Potassium Chloride [Klor-Con] 20 meq PO DAILY 04/27/17 [History] 3 Allergy/AdvReac Type Severity Reaction Status Date / Time Penicillins [PCN] Allergy Hives Verified 04/27/17 15:25 All systems: reviewed and no additional remarkable complaints except as stated Constitutional: Present: fever(s). Absent: chills, excessive sweating, weight loss Eyes: Absent: other visual disturbances Nose, mouth and throat: Present: dizziness. Absent: vertigo Additional comments: dizziness has resolved now Cardiovascular: Present: chest pain Additional comments: from coughing from the cold Respiratory: Present: cough, dyspnea, pain with cough Gastrointestinal: Present: as per HPI, abdominal pain Musculoskeletal: Absent: myalgias Neurological: Absent: other visual disturbances Oncology - Exam - Constitutional Vitals: Temp Pulse Resp BP Pulse Ox 97.9 F 82 16 123/75 92 04/28/17 10:51 04/28/17 10:51 04/28/17 10:51 04/28/17 10:51 04/28/17 10:51 Oncology - Results Labs: Short CBC 04/28/17 Range/Units 04:40 WBC 4.3 (4.3-11.1) K/mcL Hgb 10.4 L D (12.9-16.9) g/dL Hct 31.8 L (37.5-50.1) % Plt Count 202 (140-400) K/mcL Neutrophils # 2.6 (1.6-8.9) K/mcL BMP 04/28/17 04:40 Sodium 141 Potassium 4.0 Chloride 113 H Carbon Dioxide 17 L BUN 35 H Creatinine 4.05 H Glucose 90 Calcium 7.6 L Liver Function 04/28/17 Range/Units 04:40 Total Bilirubin 0.2 (0.2-1.2) mg/dL Direct Bilirubin 0.1 (0.0-0.5) mg/dL AST 26 (5-34) Units/L ALT 29 (0-55) Units/L Alkaline Phosphatase 77 (38-126) Units/L Albumin 2.9 L D (3.5-5.0) g/dL Consult Discharge Plan - Plan Referrals: Richa Baron DO [Primary Care Provider] -
--- NOTE | 2017-04-28 16:38 | Nephrology Consult Note ---
Date of Encounter: 04/28/17 Time of Encounter: 16:30 Assessment and Plan (1) Acute kidney injury Status: Acute Elevated SCr in he setting of profound diarrhea likely pre-renal vs nivolumab related Agree with aggressive volume repletion Agree with holding any nephrotoxins if possible Will check uric acid and cpk levels Urine sodium, eosinophil and protein results noted (2) Hypomagnesemia Status: Acute Will replete magnesium slowly iv today (3) CKD (chronic kidney disease) stage 3, GFR 30-59 ml/min Status: Chronic Baseline GFR in the 30-40s (4) Lung cancer Status: Chronic Qualifiers: Laterality: right Qualified Code(s): C34.01 - Malignant neoplasm of right main bronchus History of Present Illness - Reason for Consult Consult date: 04/28/17 Acute Kidney Injury, Chronic Kidney Disease Requesting physician: Melody Arceo - History of Present Illness 57 y o male with PMH of stage [address] Howard and metastatic NSCLC on nivolumab admitted after being sent from the cancer center for elevated SCr from baseline. SCr noted at 4.7, GFR 13 and previously 1.89, GFR 37 as of march. Pt apparently was having significant diarrhea for sometime felt to be from nivolumab but worse when he contracted a viral infection with BMs up to 15 time a day. He tried to stay hydrated with gatorade as much as possible. CT abd/pelvis with no iv contrast showed colitis. No NSAIDs use. Pt seen and examined with at bedside Past Med Surg Social Fam HX - Past Medical History Medical history: cancer, COPD, coronary artery disease, GERD, myocardial infarction, other Psychiatric history: no psych history - Past Surgical History Surgical History: herniorrhaphy - Social History Smoking Status: Current some day smoker Smokeless Tobacco Status: No Alcohol use: occasionally Drug use: none - Family History Mother Family Member Ethnicity: Non- Living Status: Hx Family Cancer: Yes (Colon cancer.) Father Family Member Ethnicity: Non- Living Status: Hx Family Cardiac Disorders: Yes (Aneurysm) Brother Family Member Ethnicity: Non- Living Status: Hx Family Respiratory Disorders: Yes (COPD) Sister Family Member Ethnicity: Non- Living Status: Medications and Allergies Atorvastatin [Lipitor] 40 mg PO QAM 05/20/15 [History] Metoprolol XL (24 HR) Succ [Toprol Xl] 12.5 mg PO QAM #45 tab.er.24h 10/07/16 [ Rx] Folic Acid 1 tab PO DAILY #30 tablet 01/19/17 [Rx] Paroxetine [Paxil] 30 mg PO DAILY 02/11/17 [History] Thiamine (B-1) [Vitamin B-1] 100 mg PO DAILY #30 tablet 02/25/17 [Rx] Omeprazole 20 mg PO DAILY #90 tablet. 03/25/17 [Rx] Sodium Chloride 1 tab PO BID 03/25/17 [History] hydrALAZINE [HydrALAZINE] 25 mg PO TID 03/25/17 [History] Pantoprazole Sodium [Protonix] 40 mg PO DAILY #30 tablet. 03/31/17 [Rx] Ferrous Sulfate [Iron] 325 mg PO DAILY #30 tablet 04/12/17 [Rx] Cholestyramine 1 packet PO DAILY 04/27/17 [History] Potassium Chloride [Klor-Con] 20 meq PO DAILY 04/27/17 [History] Loperamide [Imodium] 2 mg PO Q2H PRN #30 capsule 04/29/17 [Rx] predniSONE [Prednisone] 10 mg PO DAILY #40 tab.ds.pk 04/29/17 [Rx] 3 Allergy/AdvReac Type Severity Reaction Status Date / Time Penicillins [PCN] Allergy Hives Verified 04/27/17 15:25 Review of Systems All Systems: reviewed and no additional remarkable complaints except as stated ( 10 systems noted in HPI) Exam - Vital Signs Vital signs: Initial Vital Signs Temp Pulse Resp BP Pulse Ox 97.8 F 96 16 83/60 99 04/27/17 15:25 04/27/17 15:25 04/27/17 15:25 04/27/17 15:25 04/27/17 15:25 Vital Signs - Last 8 Hours Temp Pulse Resp BP Pulse Ox 04/28/17 15:38 97.9 F 85 16 136/84 95 04/28/17 10:51 97.9 F 82 16 123/75 92 04/28/17 09:00 92 Intake and Output 04/28/17 04/28/17 04/28/17 07:59 15:59 23:59 Intake Total 1000 / 1000 1840 / 1840 Balance 1000 / 1000 1840 / 1840 Intake: IV Fluids 1000 / 1000 1200 / 1200 0.9 % Sodium Chloride 1,000 ML 1000 / 1000 @ 3750 mls/hr IVC .Q16M [facility] Rx# :[id number] Lactated Ringers 1,000 ML @ 150 1000 / 1000 mls/hr IVC .Q6H40M [facility] Rx#: [id number] Cipro Premix 400 MG/200 ML 400 200 / 200 mg In 200 ml @ 200 mls/hr IVPB Q12HR [facility] Rx#:[id number] Oral 640 / 640 Other: Meal Lunch Percent of Meal Consumed 90% Weight 52.435 kg Patient Weight 04/28/17 23:59 Weight 52.435 kg - General Appearance General appearance: frail EENT: ATNC, mucous membranes moist Neck: no JVD, supple Additional Comments: good areation ant bilat Cardiology: no edema, normal S1, normal S2 Gastrointestinal: no tenderness, no guarding Integumentary: warm and dry Neurologic: no focal deficit Musculoskeletal: no deformities Psychiatric: mood/affect appropriate, cooperative Results - Lab Results 04/29/17 04:37 04/29/17 04:37 Most recent lab results Calcium 7.6 mg/dL (8.6-10.8) L 04/28/17 04:40 Phosphorus 4.8 mg/dL (2.3-4.7) H 04/27/17 16:22 Magnesium 1.1 mg/dL (1.6-2.6) L 04/28/17 04:40 Urine Creatinine 183 mg/dL 04/28/17 10:32 Urine Sodium 101.0 mEq/L 04/28/17 10:32 Urine Total Protein 43 mg/dL (1-14) H 04/28/17 10:32 Consult Discharge Plan - Plan Instructions: Loperamide (By mouth), Prednisone (By mouth), Acute Kidney Injury (DC), Hypomagnesemia (DC), Infectious Colitis, Material Damage Adjuster (GEN) Additional Instructions: Please follow-up with your family doctor, compensation and benefits administrator and oncologists within 1- 2 weeks. You need to have a repeat complete metabolic panel drawn in approximately one week Referrals: Willy Caicedo DO [Resident] - 05/10/17 10:00 am Dc Mukherjee MD [Partnered Physician] - 05/11/17 10:00 am (You have a treatment this day. Dr. Mukherjee will come and see you during your treatment.) Melchor Howard, [Partnered Physician] - 05/30/17 10:30 am Prescriptions: Loperamide [Imodium] 2 mg PO Q2H PRN #30 capsule PRN Reason: Diarrhea predniSONE [Prednisone] 10 mg PO DAILY #40 tab.ds.pk
--- NOTE | 2017-04-28 16:39 | Electrocardiograph Report ---
[place] [id number] Test Date: 2017-04-27 Pat Name: Erik Jimenez Department: 103 Room: 3B Gender: M Roller Hand: EKP : 1960 Requested By: César Mansfield Order Number: [id number] Reading MD: Jennifer Oliva Measurements Intervals [place] Rate: 108 P: 80 CO: 120 QRS: 45 QRSD: 96 T: 71 QT: 336 QTc: 400 Interpretive Statements SINUS TACHYCARDIA WITH OCCASIONAL SUPRAVENTRICULAR PREMATURE COMPLEXES ABNORMAL RHYTHM ECG Electronically Signed On 04-28-2017 16:37:54 EST by Jennifer Oliva
--- NOTE | 2017-04-28 16:45 | Internal Med Progress Note ---
Date of Encounter: 04/28/17 Time of Encounter: 16:45 - Time Spent With Patient Acute on chronic kidney disease: hx stage 3 CKD. Follows with Nephrology. Cr 4.7 , GFR 13. Multifactorial with nivolumab and GI losses secondary to loose stools. Improvement in renal function noted with IV fluids. Cont IV fluids for now. Nephrology consulted Hypomagnesia: Mg 0.7 on arrival; likely secondary to Nivolumab. Replacement ordered. Monitor repeat Mg levels Colitis: CT A/P showed fluid filled loops of distal small bowel and colon, no obstruction, suggestive of enterocolitis. No mucosal changes noted in the bowel. Reports multiple loose, watery stools daily. Stool cultures negative. Likely immune mediated colitis form nivolumab. Does not appear acutely toxic. Continue clear liquid as tolerated. Evaluated by oncology who did not suspect infectious etiology, stop Flagyl, Cipro. Continue IV steroids; will need 2 week taper at discharge. Add PRN immodium. Oncology and GI following. Non-small cell right lung cancer: per hx. Nivolumab on hold. Will need to follow-up with primary oncologist at discharge. less than 15 minutes - Subjective Interval history: Seen and examined at bedside, patient is new to me. Information obtained from chart review and patient report. Patient says he was sent to Hospital from oncology office due to abnormal labs. He does report multiple loose watery stools daily for the past 2 or 3 months. Says he has intermittent lower abdominal pain its worse with bowel movements. He does have an appetite and feels like he wants to eat. No chest pain or shortness of breath. He is making urine but feels not as much as he should be. - Constitutional Vitals: Temp Pulse Resp BP Pulse Ox 97.9 F 85 16 136/84 95 04/28/17 15:38 04/28/17 15:38 04/28/17 15:38 04/28/17 15:38 04/28/17 15:38 General appearance: Present: cachectic, A&O X 3, no acute distress - Head Head exam: Present: atraumatic, normocephalic - Eye Eye exam: Present: PERRL, conjuntiva pink, sclera anicteric Pupils: Present: PERRL - Neck Neck exam general surgery: Present: supple, trachea midline. Absent: lymphadenopathy - Respiratory Respiratory exam: Present: CTAB. Absent: accessory muscle use, rales, rhonchi, wheezes - Cardiovascular Cardiovascular exam: Present: RRR, +S1, +S2. Absent: diastolic murmur, gallop, rubs, systolic murmur - GI/Abdominal GI/Abdominal exam: Present: normal bowel sounds, soft, no peritoneal signs. Absent: distended, tenderness - Extremities Exam Extremities exam: Present: warm, radial pulses palpable and symmetrical. Absent : calf tenderness, cyanotic, pedal edema - Neurological Exam Neurological exam: Present: CN II-XII intact, oriented X3, no focal deficits. Absent: pronater drift, facial droop, speech deficit - Skin Skin exam: Present: dry, intact Internal Medicine: Result - Labs CBC & Chem 7: 04/28/17 04:40 04/28/17 04:40 Labs: Short CBC 04/28/17 Range/Units 04:40 WBC 4.3 (4.3-11.1) K/mcL Hgb 10.4 L D (12.9-16.9) g/dL Hct 31.8 L (37.5-50.1) % Plt Count 202 (140-400) K/mcL Neutrophils # 2.6 (1.6-8.9) K/mcL BMP 04/28/17 04:40 Sodium 141 Potassium 4.0 Chloride 113 H Carbon Dioxide 17 L BUN 35 H Creatinine 4.05 H Glucose 90 Calcium 7.6 L Liver Function 04/28/17 Range/Units 04:40 Total Bilirubin 0.2 (0.2-1.2) mg/dL Direct Bilirubin 0.1 (0.0-0.5) mg/dL AST 26 (5-34) Units/L ALT 29 (0-55) Units/L Alkaline Phosphatase 77 (38-126) Units/L Albumin 2.9 L D (3.5-5.0) g/dL - ABG Interpretation ABG results: PT/INR, D-dimer PT 12.3 Seconds (9.4-12.1) H 04/27/17 16:22 Consult Discharge Plan - Plan Referrals: Richa Baron DO [Primary Care Provider] -
[2017-04-28 18:17] LABS: Uric Acid 11.3 mg/dL (3.5-7.2)
[2017-04-29] MEDS: MetroNIDAZOLE 500 MG/100 ML 500 MG/100 ML BAG IVPB SCH ×2 (00:58→09:08)
[2017-04-29 05:02] LABS: Hematocrit 28.7 % (37.5-50.1); Hemoglobin 9.5 g/dL (12.9-16.9); Immature Granulocytes % 0.3 % (0-4); Lymphocytes # 0.3 K/mcL (0.6-4.6); Lymphocytes % 9.2 %; Mean Corpuscular HGB Conc 33.1 g/dL (31.6-35.5); Mean Corpuscular Hemoglobin 32.3 pg (28.0-33.3); Mean Corpuscular Volume 97.6 fL (83.0-100.0); Mean Platelet Volume 8.9 fL (9.4-12.4); Monocytes # 0.1 K/mcL (0.0-1.3); Monocytes % 1.8 %; Platelet Count 206 K/mcL (140-400); Red Blood Count 2.94 M/mcL (4.19-5.50); Red Cell Distribution Width 12.4 % (11.5-14.5); Segmented Neutrophils % 88.7 %
[2017-04-29 05:07] LABS: Albumin 2.9 g/dL (3.5-5.0); Bilirubin,Direct 0.1 mg/dL (0.0-0.5); Bilirubin,Indirect 0.1 mg/dL (0.0-1.2); Bilirubin,Total 0.2 mg/dL (0.2-1.2); Calcium 7.6 mg/dL (8.6-10.8); Globulin 2.9 g/dL (2.4-3.5); Magnesium 1.5 mg/dL (1.6-2.6); Potassium 4.6 mEq/L (3.5-4.5); Total Protein 5.8 g/dL (6.0-8.3)
[2017-04-29] MEDS: *HR* Heparin 5,000 UNIT/ML VIAL SQ SCH (05:26)
[2017-04-29] MEDS: Metoprolol XL (24 HR) Succ 25 MG TAB.ER.24H PO SCH (09:07)
[2017-04-29] MEDS: methylPREDNISolone 125 MG/2 ML VIAL IVP SCH (09:08)
--- NOTE | 2017-04-29 10:30 | Nephrology Progress Note ---
Date of Encounter: 04/29/17 Time of Encounter: 09:45 - Assessment and Plan (1) Acute kidney injury Current Visit: Yes Status: Acute Nonoliguria RACHEL on CKD stage III. RACHEL was pre-renal from diarrhea that was most likely secondary to chemo. Now rapidly trending better in terms of renal function -- no need for COOPERATIVE MANAGER. The IVF with 0.9% saline has induced a mild hyperchloremic dilutional acidosis, so if he were to not be discharged and remain hospitalized, then I would recommend he receive 1/2NS+75mEq bicarb IVF (which is an isotonic solution) for correction of the acidosis and volume expansion. However, since he easily eating , drinking and improving with renal function; it would be reasonable to discharge today from a nephrology perspective. I would recommend he have a BMP checked in about 1 week after discharge. I'll ask my team to help schedule a hospital follow up with him in about 2 weeks. Continue to follow a renal protective strategy as able: avoid IV contrast, Bactrim, NSAIDs and etc. Lung Ca as per Onc. Anemia: monitoring and following Onc. Thank you. (2) CKD (chronic kidney disease) stage 3, GFR 30-59 ml/min Current Visit: No Status: Chronic (3) Colitis Current Visit: Yes Status: Acute (4) Anemia of chronic disease Current Visit: No Status: Acute (5) History of lung cancer Current Visit: No Status: Acute Subjective Principal diagnosis: RACHEL from Diarrhea Interval history: Pt was s/e earlier today. He did not affirm N/V and has less watery stools -- starting to become more solid and his suprapubic pain has resolved, he affirmed. No flank pains, and no dysuria, he affirmed. He has a good appetite and he said he was eating his second breakfast. He voiced hope to discharge today. Objective - Vital Signs Vital signs: Vital Signs Temp Pulse Resp BP Pulse Ox 04/29/17 07:38 97.6 F 97 18 110/72 95 04/29/17 02:52 97.8 F 78 16 133/79 94 04/28/17 23:19 97.8 F 79 16 125/74 94 04/28/17 18:45 97.3 F L 79 16 129/77 97 04/28/17 15:38 97.9 F 85 16 136/84 95 04/28/17 10:51 97.9 F 82 16 123/75 92 Intake and Output 04/28/17 04/29/17 04/29/17 23:59 07:59 15:59 Intake Total 200 / 200 420 / 420 Output Total 500 / 500 Balance -300 / -300 420 / 420 Intake: IV Fluids 200 / 200 100 / 100 Cipro Premix 200 MG/100 ML 200 100 / 100 mg In 100 ml @ 100 mls/hr IVPB Q12HR [facility] Rx#:[id number] Flagyl Premix 500 MG/100 ML 500 100 / 100 100 / 100 mg In 100 ml @ 100 mls/hr IVPB Q8HR [facility] Rx#:[id number] Oral 320 / 320 Output: Urine 500 / 500 Other: Meal Breakfast Percent of Meal Consumed 100% Weight 52.481 kg Patient Weight 04/29/17 23:59 Weight 52.481 kg - General Appearance General appearance: Present: well-developed, appears started age, cachectic EENT: Present: ATNC, PERRL, mucous membranes moist Neck: Present: supple Respiratory: Present: clear Cardiology: Present: no edema, regular rate, regular rhythm, normal S1, normal S2 Gastrointestinal: Present: normoactive bowel sounds, no tenderness, no guarding Integumentary: Present: no rash, warm and dry Neurologic: Present: no focal deficit, no asterixis, alert and oriented x3 Musculoskeletal: Present: no deformities, no erythema, no cyanosis Psychiatric: Present: mood/affect appropriate, cooperative - Lab 04/29/17 04:37 04/29/17 04:37 Most recent lab results Calcium 7.6 mg/dL (8.6-10.8) L 04/29/17 04:37 Phosphorus 4.8 mg/dL (2.3-4.7) H 04/27/17 16:22 Magnesium 1.5 mg/dL (1.6-2.6) L 04/29/17 04:37 Urine Creatinine 183 mg/dL 04/28/17 10:32 Urine Sodium 101.0 mEq/L 04/28/17 10:32 Urine Total Protein 43 mg/dL (1-14) H 04/28/17 10:32 Consult Discharge Plan - Plan Referrals: Richa Baron DO [Primary Care Provider] -
[2017-04-29 10:54] VITALS: BP 128/75
--- NOTE | 2017-04-29 11:19 | Discharge Summary ---
Date of Encounter: 04/29/17 Time of Encounter: 11:17 - Discharge Diagnosis (1) Oopen-lt-uxinvym kidney injury Priority: Primary Status: Acute Comments: Has known stage III CKD, follows with nephrology. Outpatient lab work revealed worsening renal function with creatinine 4.9, GFR 12. Evaluated by nephrology who noted nonoliguria RACHEL on CKD stage III; RACHEL pre-renal from diarrhea that was most likely secondary to chemo. Renal function significantly improved with IV hydration and decreased number of loose stools. Cr 2.6 at discharge. Avoid nephrotoxic agents as possible. Home JAUN stopped. Follow-up with nephrology within 1-2 weeks. Qualifiers: Qualified Code(s): N17.9 - Acute kidney failure, unspecified; N18.3 - Chronic kidney disease, stage 3 (moderate); N18.3 - Chronic kidney disease, stage 3 (moderate) (2) Colitis Priority: Primary Status: Acute Comments: presented with loose/watery stools (15-20 per day) and mild abdominal pain. CT A/P showed fluid filled loops of distal small bowel and colon, no obstruction, suggestive of enterocolitis. No mucosal changes noted in the bowel. Stool cultures negative. 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 Afebrile, no elevated WBC; did not appear toxic or acute. Low suspicion for infectious etiology. No need for ATB. Symptoms significantly improved with IV steroids. Stools decreasing and more formed, denied abdominal pain abdominal pain and tolerating regular diet at time of discharge. Discharge with 2 week steroid taper per oncology recommendations. PRN immodium. Oncology and GI followed. (3) Hypomagnesemia Priority: Primary Status: Acute Comments: Mg 0.7; likely secondary to nivolumab and excessive GI losses. Magnesium replaced. Will need repeat CMP within 1 week with PCP and/or nephrology. (4) Hypertension Priority: Secondary Status: Chronic Comments: per hx. Home JAUN stopped with worsening renal function. BP remained controlled. Continue home eye drowsy, BB. Recommend follow-up with PCP within one week for BP recheck. Qualifiers: Hypertension type: essential hypertension Qualified Code(s): I10 - Essential (primary) hypertension (5) Non-small cell cancer of right lung Priority: Secondary Status: Chronic Comments: hx non-small cell right lung cancer. Nivolumab on hold. Will need to follow-up with primary oncologist at discharge. - Discharge Medications Prescriptions: Loperamide [Imodium] 2 mg PO Q2H PRN #30 capsule PRN Reason: Diarrhea predniSONE [Prednisone] 10 mg PO DAILY #40 tab.ds.pk Home Medications: Atorvastatin [Lipitor] 40 mg PO QAM 05/20/15 [History] Metoprolol XL (24 HR) Succ [Toprol Xl] 12.5 mg PO QAM #45 tab.er.24h 10/07/16 [ Rx] Folic Acid 1 tab PO DAILY #30 tablet 01/19/17 [Rx] Paroxetine [Paxil] 30 mg PO DAILY 02/11/17 [History] Thiamine (B-1) [Vitamin B-1] 100 mg PO DAILY #30 tablet 02/25/17 [Rx] Omeprazole 20 mg PO DAILY #90 tablet. 03/25/17 [Rx] Sodium Chloride 1 tab PO BID 03/25/17 [History] hydrALAZINE [HydrALAZINE] 25 mg PO TID 03/25/17 [History] Pantoprazole Sodium [Protonix] 40 mg PO DAILY #30 tablet. 03/31/17 [Rx] Ferrous Sulfate [Iron] 325 mg PO DAILY #30 tablet 04/12/17 [Rx] Cholestyramine 1 packet PO DAILY 04/27/17 [History] Potassium Chloride [Klor-Con] 20 meq PO DAILY 04/27/17 [History] Loperamide [Imodium] 2 mg PO Q2H PRN #30 capsule 04/29/17 [Rx] predniSONE [Prednisone] 10 mg PO DAILY #40 tab.ds.pk 04/29/17 [Rx] Allergies/Adverse Reactions: 3 Allergy/AdvReac Type Severity Reaction Status Date / Time Penicillins [PCN] Allergy Hives Verified 04/27/17 15:25 Date of admission: 04/28/17 00:36 Primary care physician: Richa Baron, Discharging clinician: Thu Candelario Anticipated date of discharge: 04/29/17 - Patient Status Disposition: Home, Self-Care Condition: Good Functional capacity at discharge: independent ambulation Overall status at discharge: patient is back to baseline - Discharge Instructions Instructions: Prednisone (By mouth), Infectious Colitis, Inspector Circuitry Negative (GEN) , Loperamide (By mouth) Follow Up With: Richa Baron DO [Primary Care Provider] - Additional Instructions: Please follow-up with your family doctor, drop worker and oncologists within 1- 2 weeks. You need to have a repeat complete metabolic panel drawn in approximately one week - Diet and Activity Activity: increase activity as tolerated Interval History: Seen and examined at bedside. Patient says he feels significantly better; number of stools have decreased overnight. Stools are now somewhat formed. No longer watery or loose. He denies abdominal pain. Tolerating regular diet. He is aware of need to follow up with PCP and/or nephrology within 1 week for repeat blood work. Hospital course: See assessment and plan for hospital course - Time Spent with Patient Total time spent providing and/or coordinating discharge services: - Constitutional Vitals: Temp Pulse Resp BP Pulse Ox 97.3 F L 83 16 128/75 95 04/29/17 10:52 04/29/17 10:52 04/29/17 10:52 04/29/17 10:52 04/29/17 10:52 General appearance: Present: cachectic, A&O X 3, no acute distress - Head Head exam: Present: atraumatic, normocephalic - Eye Eye exam: Present: PERRL, conjuntiva pink, sclera anicteric Pupils: Present: PERRL - Neck Neck exam general surgery: Present: supple, trachea midline. Absent: lymphadenopathy - Respiratory Respiratory exam: Present: CTAB. Absent: accessory muscle use, rales, rhonchi, wheezes - Cardiovascular Cardiovascular exam: Present: RRR, +S1, +S2. Absent: diastolic murmur, gallop, rubs, systolic murmur - GI/Abdominal GI/Abdominal exam: Present: normal bowel sounds, soft, no peritoneal signs. Absent: distended, tenderness - Extremities Exam Extremities exam: Present: warm, radial pulses palpable and symmetrical. Absent : calf tenderness, cyanotic, pedal edema - Neurological Exam Neurological exam: Present: CN II-XII intact, oriented X3, no focal deficits. Absent: pronater drift, facial droop, speech deficit - Skin Skin exam: Present: dry, intact
[2017-05-02 14:41] LABS: Ova & Parasite Stain NEGATIVE (Negative)
[2017-05-02 14:50] LABS: Pancreatic Elastase, Fecal 313 ug/g (>=201)
== END 2017-04-29 14:45 | disposition home or self-care (01) | DRG 469 ==
LOC: 3BNU 15:18 → EMEROO 15:18 → 3BNU 18:10
PROVIDERS: ADMIT Registered Nurse; ATTEND Registered Nurse

== ENCOUNTER 2017-08-06 03:08 | Inpatient (IN) ==
[2017-08-06] MEDS ORDERED: 0.9 % Sodium Chloride 1,000 ML IVC ONE (03:37)
[2017-08-06] MEDS ORDERED: Ondansetron 4 MG/2 ML VIAL IVP ONE (03:37)
[2017-08-06] MEDS ORDERED: GI Cocktail 40 ML EACH PO ONE (03:37)
[2017-08-06] MEDS ORDERED: *HR* FentaNYL (PF) 100 MCG/2 ML VIAL IVP ONE ×2 (03:39→04:45)
--- NOTE | 2017-08-06 03:45 | Emergency Department Note ---
Disposition Clinical Impression: Lung cancer Abdominal pain Qualifiers: Abdominal location: generalized Qualified Code(s): R10.84 - Generalized abdominal pain Headache Qualifiers: Headache type: unspecified Headache chronicity pattern: acute headache Intractability: intractable Qualified Code(s): R51 - Headache Disposition: Admitted As Inpatient Condition: Good Time of Disposition: 05:13 General Adult HPI - General Chief complaint: ED Abdominal Pain Stated complaint: Abdominal Pain Time Seen by Provider: 08/06/17 03:24 Source: patient Limitations: no limitations Nursing Notes Reviewed: Yes Vital Signs Reviewed: Yes - History of Present Illness HPI Narrative: 3-4 day history of abdominal pain. Generally takes Protonix but ran out. Recently got a prescription refilled for that. Does complain that it is a burning sensation. Also sharp in nature. States it radiates up into his chest. Also complaining of a headache. He is more concerned about the headache that his abdominal pain as he never gets headaches and frequently has abdominal pain. Pain Scale: 10 - Related Data Home Medications Medication Instructions Recorded Confirmed Atorvastatin [Lipitor] 40 mg PO QAM 05/20/15 07/15/17 Paroxetine [Paxil] 30 mg PO DAILY 02/11/17 07/15/17 Sodium Chloride 1 tab PO BID 03/25/17 07/15/17 hydrALAZINE [HydrALAZINE] 25 mg PO TID 03/25/17 07/15/17 Potassium Chloride [Klor-Con] 20 meq PO DAILY 04/27/17 07/15/17 Previous Rx's Medication Instructions Recorded Metoprolol XL (24 HR) Succ [Toprol 12.5 mg PO QAM #45 tab.er.24h 10/07/16 Xl] Loperamide [Imodium] 2 mg PO Q2H PRN #30 capsule 04/29/17 Magnesium Oxide [Magnesium] 1 tab PO BID #60 tablet 05/27/17 Omeprazole 20 mg PO DAILY #90 tablet. 05/30/17 Thiamine (B-1) [Vitamin B-1] 100 mg PO DAILY #30 tablet 05/30/17 Folic Acid 1 tab PO DAILY #30 tablet 06/13/17 Pantoprazole Sodium [Protonix] 40 mg PO DAILY #30 tablet. 08/01/17 Ferrous Sulfate [Iron] 325 mg PO DAILY #30 tablet 08/05/17 Allergies Allergy/AdvReac Type Severity Reaction Status Date / Time Penicillins [PCN] Allergy Hives Verified 08/06/17 03:10 All systems ED: reviewed and negative except as stated. Constitutional: Denies: fever, chills Cardiovascular: Denies: chest pain, palpitations, syncope Respiratory: Denies: cough, dyspnea Gastrointestinal: Reports: abdominal pain (Epigastric in nature burning and sharp radiates in the chest.), nausea, vomiting (One episode yesterday), diarrhea (Had loose stools while on amino suppressant therapy but for the past 4 days appears as if his stools are returning to normal.). Denies: hematemesis , melena, hematochezia Genitourinary: Denies: urgency, dysuria, frequency, hematuria Musculoskeletal: Denies: back pain, neck pain Integumentary: Denies: rash Neurological: Reports: headache. Denies: weakness, numbness Past Medical History - Past Medical History Attestation: Yes The following information was validated with the patient. Source: patient Medical history: Reports: cancer, COPD, coronary artery disease, GERD, myocardial infarction, other Surgical history: Reports: herniorrhaphy Psychiatric history: Reports: no psych history - Social History Smoking Status: Current some day smoker Smokeless Tobacco Status: No Alcohol use: Reports: occasionally Drug use: Reports: none Physical Exam - General Limitations: no limitations General appearance: alert, in no apparent distress - Head Head exam: atraumatic, normocephalic, normal inspection - Eye Eye exam: Present: normal appearance, PERRL, EOMI - ENT ENT exam: normal exam, normal oropharynx, mucous membranes moist - Neck Neck exam: Present: normal inspection, full ROM, trachea midline - Chest Chest inspection: Present: normal inspection, symmetric chest wall rise - Respiratory Respiratory exam: Present: other (Mild rhonchi to the right upper lobe.). Absent: accessory muscle use - Cardiovascular Cardiovascular exam: Present: regular rate, normal rhythm, normal heart sounds - Abdominal Exam Abdominal exam: Present: soft, tenderness (Diffusely), guarding (On complete abdominal exam). Absent: distention - Extremities Exam Extremities exam: Present: normal inspection, full ROM, normal capillary refill. Absent: tenderness - Back Exam Back exam: Present: normal inspection, full ROM. Absent: tenderness - Neurological Exam Neurological exam: Present: alert, oriented X3 - Psychiatric Psychiatric exam: Present: normal affect, normal mood - Skin Skin exam: Present: warm, dry, intact, normal color. Absent: rash, cyanosis Course Course Narrative: Male patient presenting to the emergency department complaining of abdominal pain has been present for 3 days. He points to his epigastric region whenever he complains of the pain. He does have a history of lung cancer that he has recently stopped doing immunosuppressive therapy for due to renal failure. He also has a new history of renal failure. Patient states that he recently had a change in his bowel habit. He used to have frequent liquid stools however now he is having more formed stools. With the last one being yesterday. States that he feels like he needs to have a bowel movement but cannot at this time. He reports a 3 to four-day history of this epigastric pain. He states the pain radiates up into his chest. He reported nausea with an episode of vomiting yesterday. No hematemesis. He denies any blood in his stool or urine. He is also reporting a headache. CT of patient's head was negative. CT of patient's abdomen showed a possible evolving small bowel obstruction. Patient's changes stools and inability to control his abdominal pain while here we will admit him for serial abdominal exams and pain management. He is agreeable to this - Consultations Consultation #1: Patient accepted in stable condition by Dr. Arceo Time: 05:12 Vital Signs Temperature 97.7 F 08/06/17 03:10 Pulse Rate 81 08/06/17 03:10 Respiratory Rate 18 08/06/17 03:10 Blood Pressure 162/97 08/06/17 03:10 O2 Sat by Pulse Oximetry 100 08/06/17 03:10 Temperature 97.7 F 08/06/17 03:10 Pulse Rate 85 08/06/17 05:26 Respiratory Rate 16 08/06/17 05:26 Blood Pressure 159/86 08/06/17 05:26 O2 Sat by Pulse Oximetry 97 08/06/17 05:26 Oxygen Delivery Oxygen Delivery Room Air Medical Decision Making - Medical Records Medical records reviewed: Yes I reviewed the patient's medical records. - Lab Data Lab results reviewed: Yes I reviewed the patient's lab results. Result diagrams: 08/06/17 03:35 08/06/17 03:35 Lab Results 08/06/17 08/06/17 08/06/17 Range/Units 03:35 03:35 03:35 WBC 8.5 (4.3-11.1) K/mcL RBC 4.13 L (4.19-5.50) M/mcL Hgb 12.8 L (12.9-16.9) g/dL Hct 39.7 (37.5-50.1) % MCV 96.1 (83.0-100.0) fL MCH 31.0 (28.0-33.3) pg MCHC 32.2 (31.6-35.5) g/dL RDW 13.0 (11.5-14.5) % Plt Count 287 (140-400) K/mcL MPV 8.5 L (9.4-12.4) fL Immature Gran % 0.5 (0-4) % Seg Neutrophils % 68.0 % Lymphocytes % 18.3 % Monocytes % 7.9 % Eosinophils % 4.6 % Basophils % 0.7 % Neutrophils # 5.8 (1.6-8.9) K/mcL Lymphocytes # 1.6 (0.6-4.6) K/mcL Monocytes # 0.7 (0.0-1.3) K/mcL Eosinophils # 0.4 (0.0-0.6) K/mcL Basophils # 0.1 (0.0-0.2) K/mcL PT 11.6 (9.4-12.1) Seconds INR 1.1 APTT 28.1 (26.0-36.0) Seconds Sodium 137 (136-145) mEq/L Potassium 4.2 (3.5-5.1) mEq/L Chloride 103 (98-107) mEq/L Carbon Dioxide 25 (23-29) mEq/L BUN 14 (6-20) mg/dL Creatinine 1.96 H (0.70-1.30) mg/dL Est GFR ( Amer) 43 L (> 60) Est GFR (Non-Af Amer) 35 L (> 60) BUN/Creatinine Ratio 7 (6-26) Glucose 110 H (70-105) mg/dL Calculated Osmolality 285 (280-300) Lactic Acid (0.5-2.2) mmol/L Calcium 9.1 (8.6-10.3) mg/dL Total Bilirubin 0.3 (0.3-1.0) mg/dL Direct Bilirubin 0.1 (0.0-0.2) mg/dL Indirect Bilirubin 0.2 (0.0-1.2) mg/dL AST 27 (13-39) Units/L ALT 37 (7-52) Units/L Alkaline Phosphatase 310 H (34-104) Units/L Troponin I 0.03 (< 0.04) ng/mL Serum Total Protein 7.2 (6.4-8.9) g/dL Albumin 4.1 (3.5-5.7) g/dL Globulin 3.1 (2.4-3.5) g/dL Albumin/Globulin Ratio 1.3 (1.1-2.2) Lipase 38 (11-82) Units/L Urine Color (Yellow) Urine Clarity (Clear) Urine pH (5.0-8.0) pH Units Ur Specific [place] (1.010-1.025) Urine Protein (Neg-Trace) mg/dL Urine Glucose (UA) (Normal) mg/dL Urine Ketones (Negative) mg/dL Urine Blood (Negative) Urine Nitrite (Negative) Urine Bilirubin (Negative) Urine Urobilinogen (Normal) mg/dL Ur Leukocyte Esterase (Negative) Urine Microscopic RBC (0-3) per hpf Urine Microscopic WBC (0-3) per hpf Ur Squamous Epith Cells (None-Few) per lpf Urine Bacteria (None-Few) per hpf Hyaline Casts (None-Few) per lpf Ur Culture Indicated? (NO) 08/06/17 08/06/17 Range/Units 03:35 04:11 WBC (4.3-11.1) K/mcL RBC (4.19-5.50) M/mcL Hgb (12.9-16.9) g/dL Hct (37.5-50.1) % MCV (83.0-100.0) fL MCH (28.0-33.3) pg MCHC (31.6-35.5) g/dL RDW (11.5-14.5) % Plt Count (140-400) K/mcL MPV (9.4-12.4) fL Immature Gran % (0-4) % Seg Neutrophils % % Lymphocytes % % Monocytes % % Eosinophils % % Basophils % % Neutrophils # (1.6-8.9) K/mcL Lymphocytes # (0.6-4.6) K/mcL Monocytes # (0.0-1.3) K/mcL Eosinophils # (0.0-0.6) K/mcL Basophils # (0.0-0.2) K/mcL PT (9.4-12.1) Seconds INR APTT (26.0-36.0) Seconds Sodium (136-145) mEq/L Potassium (3.5-5.1) mEq/L Chloride (98-107) mEq/L Carbon Dioxide (23-29) mEq/L BUN (6-20) mg/dL Creatinine (0.70-1.30) mg/dL Est GFR ( Amer) (> 60) Est GFR (Non-Af Amer) (> 60) BUN/Creatinine Ratio (6-26) Glucose (70-105) mg/dL Calculated Osmolality (280-300) Lactic Acid 2.0 (0.5-2.2) mmol/L Calcium (8.6-10.3) mg/dL Total Bilirubin (0.3-1.0) mg/dL Direct Bilirubin (0.0-0.2) mg/dL Indirect Bilirubin (0.0-1.2) mg/dL AST (13-39) Units/L ALT (7-52) Units/L Alkaline Phosphatase (34-104) Units/L Troponin I (< 0.04) ng/mL Serum Total Protein (6.4-8.9) g/dL Albumin (3.5-5.7) g/dL Globulin (2.4-3.5) g/dL Albumin/Globulin Ratio (1.1-2.2) Lipase (11-82) Units/L Urine Color Yellow (Yellow) Urine Clarity Clear (Clear) Urine pH 5.5 (5.0-8.0) pH Units Ur Specific [place] 1.020 (1.010-1.025) Urine Protein Trace (Neg-Trace) mg/dL Urine Glucose (UA) Normal (Normal) mg/dL Urine Ketones Negative (Negative) mg/dL Urine Blood Negative (Negative) Urine Nitrite Negative (Negative) Urine Bilirubin Negative (Negative) Urine Urobilinogen Normal (Normal) mg/dL Ur Leukocyte Esterase Negative (Negative) Urine Microscopic RBC 0-3 (0-3) per hpf Urine Microscopic WBC 0-3 (0-3) per hpf Ur Squamous Epith Cells Moderate H (None-Few) per lpf Urine Bacteria None Seen (None-Few) per hpf Hyaline Casts None Seen (None-Few) per lpf Ur Culture Indicated? NO (NO) - Radiology Data Radiology results reviewed: Yes I reviewed the patient's radiology results. Head CT 08/06/17 03:48 IMPRESSION: No acute intracranial abnormality. Right maxillary sinus disease. Correlate for acute maxillary sinusitis. D/ / Simone Lizama / Simone Lizama Interpreting Provider: Simone Lizama - EKG Data EKG #1 EKG attestation: Yes I reviewed and interpreted this EKG. EKG results narrative: Normal sinus rhythm at a rate of 79. TX interval is 133. Acute rastafarian is 99. QT is 375. QTC is 410. No signs of acute ischemia. No significant change from previous EKG dated 04/27/2017. Attestation Statement - Attestation Attestation: I examined this patient and my medical decision-making was reviewed with the Resident Physician. I agree with the documented findings, disposition and treatment plan as described except to the extent set forth below. Patient with intractable abdominal pain. We will admit for bowel rest. All possible developing small bowel obstruction. Patient is non peritoneal at time of admission.
[2017-08-06 03:49] LABS: Basophils # 0.1 K/mcL (0.0-0.2); Basophils % 0.7 %; Eosinophils # 0.4 K/mcL (0.0-0.6); Eosinophils % 4.6 %; Hematocrit 39.7 % (37.5-50.1); Hemoglobin 12.8 g/dL (12.9-16.9); Immature Granulocytes % 0.5 % (0-4); Lymphocytes # 1.6 K/mcL (0.6-4.6); Lymphocytes % 18.3 %; Mean Corpuscular HGB Conc 32.2 g/dL (31.6-35.5); Mean Corpuscular Volume 96.1 fL (83.0-100.0); Mean Platelet Volume 8.5 fL (9.4-12.4); Monocytes # 0.7 K/mcL (0.0-1.3); Monocytes % 7.9 %; Neutrophils # 5.8 K/mcL (1.6-8.9); Platelet Count 287 K/mcL (140-400); Red Blood Count 4.13 M/mcL (4.19-5.50)
[2017-08-06 03:59] LABS: INR 1.1; Prothrombin Time 11.6 Seconds (9.4-12.1)
[2017-08-06 04:01] LABS: Activated Partial Thrombo Time 28.1 Seconds (26.0-36.0)
[2017-08-06 04:14] LABS: Albumin 4.1 g/dL (3.5-5.7); Albumin/Globulin Ratio 1.3 (1.1-2.2); Bilirubin,Direct 0.1 mg/dL (0.0-0.2); Bilirubin,Indirect 0.2 mg/dL (0.0-1.2); Bilirubin,Total 0.3 mg/dL (0.3-1.0); Calcium 9.1 mg/dL (8.6-10.3); Globulin 3.1 g/dL (2.4-3.5); Potassium 4.2 mEq/L (3.5-5.1); Total Protein 7.2 g/dL (6.4-8.9)
[2017-08-06 04:15] LABS: Troponin I 0.03 ng/mL (< 0.04)
[2017-08-06 04:24] LABS: Bilirubin,Urine Negative (Negative); Blood,Urine Negative (Negative); Clarity,Urine Clear (Clear); Color,Urine Yellow (Yellow); Glucose,Urine (UA) Normal (Normal); Ketones,Urine Negative (Negative); Leukocyte Esterase,Urine Negative (Negative); Nitrite,Urine Negative (Negative); PH,Urine 5.5 pH Units (5.0-8.0); Protein,Urine Trace mg/dL (Neg-Trace); Urobilinogen,Urine Normal (Normal)
[2017-08-06 04:28] LABS: Bacteria,Urine None Seen per hpf (None-Few); Hyaline Casts,Urine None Seen per lpf (None-Few); RBC,Urine 0-3 per hpf (0-3); Squamous Epithelial Cell,Urine Moderate per lpf (None-Few); WBC,Urine 0-3 per hpf (0-3)
[2017-08-06] MEDS ORDERED: Ondansetron 4 MG/2 ML VIAL IVP PRN (05:33)
[2017-08-06] MEDS ORDERED: *HR* FentaNYL (PF) 100 MCG/2 ML VIAL IVP PRN (05:34)
[2017-08-06] MEDS ORDERED: Naloxone 0.4 MG/ML INJ IVP PRN (05:35)
--- NOTE | 2017-08-06 05:43 | Internal Med History&Physical ---
Date of Encounter: 08/06/17 Time of Encounter: 05:41 Assessment and Plan (1) Small bowel obstruction Current visit: Yes Status: Acute NPO IVF IV pain, IV emetic known to Dr Olivares. Will consult in the a.m conservative management for now trend lactate, BMP (2) Lung cancer Current visit: Yes Status: Chronic Follows with oncology. 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 Not acute Qualifiers: Chronic bronchitis type: simple Qualified Code(s): J41.0 - Simple chronic bronchitis (4) CKD (chronic kidney disease) Current visit: Yes Status: Acute trend cr. stable Qualifiers: Chronic kidney disease stage: stage 3 (moderate) Qualified Code(s): N18.3 - Chronic kidney disease, stage 3 (moderate) Internal Medicine - H&P: HPI Chief complaint: Abdo pain History of present illness: Mr. 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 Patient developed abdominal pain localized to the epigastric and periumbilical region since last Tuesday. Pain was described as persistent, crampy in nature. Patient called Dr. Edwards, his oncologist last Tuesday and was advised to take Protonix to no improvement. Pain remains persistent and had gone worse in the last 2 days. He developed brown emesis yesterday and another episode this morning. His last bowel movement was yesterday morning described to be brown regular. Patient is known to Dr. Olivares where he had prior bilateral hernia repair previously. On review he reported having a bad frontal migraine since this evening at 7 PM. EKG personally reviewed with rate 79, incomplete right bundle branch block, normal sinus rhythm CT/CT head/brain wo con IMPRESSION: No acute intracranial abnormality. Right maxillary sinus disease. Correlate for acute maxillary sinusitis. CT/CT abd pelvis wo no iv no oral IMPRESSION: Multiple mildly dilated loops of bowel in the left upper quadrant without discrete transition point. Findings likely represent partial/ developing small bowel obstruction. Past Med Surg Social Fam HX - Past Medical History Medical history: cancer, COPD, coronary artery disease, GERD, myocardial infarction, other Psychiatric history: no psych history - Past Surgical History Surgical History: herniorrhaphy - Social History Smoking Status: Current some day smoker Smokeless Tobacco Status: No Alcohol use: occasionally Drug use: none - Family History Mother Family Member Ethnicity: Non- Living Status: Hx Family Cancer: Yes (Colon cancer.) Father Family Member Ethnicity: Non- Living Status: Hx Family Cardiac Disorders: Yes (Aneurysm) Brother Family Member Ethnicity: Non- Living Status: Hx Family Respiratory Disorders: Yes (COPD) Sister Family Member Ethnicity: Non- Living Status: Internal Medicine - H&P: Meds Atorvastatin [Lipitor] 40 mg PO QAM 05/20/15 [History] Metoprolol XL (24 HR) Succ [Toprol Xl] 12.5 mg PO QAM #45 tab.er.24h 10/07/16 [ Rx] Paroxetine [Paxil] 30 mg PO DAILY 02/11/17 [History] Sodium Chloride 1 tab PO BID 03/25/17 [History] hydrALAZINE [HydrALAZINE] 25 mg PO TID 03/25/17 [History] Potassium Chloride [Klor-Con] 20 meq PO DAILY 04/27/17 [History] Loperamide [Imodium] 2 mg PO Q2H PRN #30 capsule 04/29/17 [Rx] Magnesium Oxide [Magnesium] 1 tab PO BID #60 tablet 05/27/17 [Rx] Omeprazole 20 mg PO DAILY #90 tablet. 05/30/17 [Rx] Thiamine (B-1) [Vitamin B-1] 100 mg PO DAILY #30 tablet 05/30/17 [Rx] Folic Acid 1 tab PO DAILY #30 tablet 06/13/17 [Rx] Pantoprazole Sodium [Protonix] 40 mg PO DAILY #30 tablet. 08/01/17 [Rx] Ferrous Sulfate [Iron] 325 mg PO DAILY #30 tablet 08/05/17 [Rx] 3 Allergy/AdvReac Type Severity Reaction Status Date / Time Penicillins [PCN] Allergy Hives Verified 03/24/18 03:10 All Systems PM: A 10-system review of systems was performed and is negative for pertinent findings except as documented above in the HPI. Review of systems: ROS 14 point review of systems reviewed as best as possible given presentation. Pertinent positive or negative as per HPI or otherwise reviewed as negative - Constitutional Vitals: Temp Pulse Resp BP Pulse Ox 97.7 F 85 16 159/86 97 08/06/17 03:10 08/06/17 05:26 08/06/17 05:26 08/06/17 05:26 08/06/17 05:26 Exam: General - AAO x 3 Psych - Appropriate affect/speech. No agitation Eyes - SANTOSH. Eye lids intact. No scleral icterus Neuro - No gross peripheral or central neuro deficits on inspection Heart - Sinus. RRR. S1 and S2 present. No added HS/murmurs appreciated. No elevated JVD appreciated. Lung - Adequate air entry b/l, No crackles/wheezes appreciated GI - abdominal guarding, nonrigid. No hepatosplenomegaly/ascites. BS+ - No CVA/suprapubic tenderness or palpable bladder distension Skin - Intact. No rash/petechiae/ecchymosis. Warm extremities MSK - Joints with normal ROM. No joint swellings Internal Med - H&P Results - Labs CBC & Chem 7: 08/06/17 03:35 08/06/17 03:35
[2017-08-06] MEDS: *HR* Heparin 5,000 UNIT/ML VIAL SQ SCH ×2 (06:31→17:33)
[2017-08-06] MEDS: Ringers Solution, Lactated 1,000 ML IVC SCH ×2 (06:31→17:32)
[2017-08-06] MEDS ORDERED: hydrALAZINE 25 MG TABLET PO SCH (09:00)
[2017-08-06] MEDS ORDERED: Metoprolol XL (24 HR) Succ 25 MG TAB.ER.24H PO SCH (09:00)
[2017-08-06] MEDS ORDERED: Acetaminophen IV 1,000 MG/100 ML INFUS..BTL IVPB ONE (09:07)
--- NOTE | 2017-08-06 14:57 | Internal Med Progress Note ---
Date of Encounter: 08/06/17 Time of Encounter: 14:55 - Assessment and plan (1) Abdominal pain Current Visit: Yes Status: Acute Assessment and plan: Likely secondary to small bowel obstruction versus ileus. We will treat with fentanyl. Qualifiers: Abdominal location: generalized Qualified Code(s): R10.84 - Generalized abdominal pain (2) CKD (chronic kidney disease) Current Visit: Yes Status: Acute Assessment and plan: Avoid nephrotoxins. Per medical record review creatinine close to his baseline. In May 2017 and was 2.01. Qualifiers: Chronic kidney disease stage: stage 3 (moderate) Qualified Code(s): N18.3 - Chronic kidney disease, stage 3 (moderate) (3) COPD (chronic obstructive pulmonary disease) Current Visit: Yes Status: Acute Assessment and plan: Inhaled bronchodilators and supplemental oxygen. No evidence of exacerbation. Qualifiers: Chronic bronchitis type: simple Qualified Code(s): J41.0 - Simple chronic bronchitis (4) Lung cancer Current Visit: Yes Status: Acute Assessment and plan: Outpatient follow-up with oncology. Qualifiers: Laterality: unspecified laterality Lung location: upper lobe of lung Qualified Code(s): C34.10 - Malignant neoplasm of upper lobe, unspecified bronchus or lung (5) Small bowel obstruction Current Visit: Yes Status: Acute Assessment and plan: Per CT abdomen report dilated loops of bowel without transition point representing partial large developing small bowel obstruction. We will continue nothing by mouth. IV fluids. IV antiemetics. IV analgesics. He is at high risk for morbidity and complications due to treatment with IV fentanyl. (6) DVT prophylaxis Current Visit: No Status: Acute Assessment and plan: We will switch to renally adjusted Lovenox dose due to history of cancer. (7) CKD (chronic kidney disease) stage 3, GFR 30-59 ml/min Current Visit: No Status: Chronic (8) Tobacco abuse Current Visit: No Status: Chronic Assessment and plan: I advised smoking cessation. We will provide nicotine replacement therapy. - Subjective Interval history: Patient reports severe headache since this morning, diffuse, dull, not improved with fentanyl. He continues to have abdominal pain which is moderate, improved with lying on one side, improved with fentanyl, associated with nausea no vomiting. He had a small bowel movement today. - Constitutional Vitals: Temp Pulse Resp BP Pulse Ox 97.4 F L 79 18 121/80 97 08/06/17 11:41 08/06/17 11:41 08/06/17 11:41 08/06/17 11:41 08/06/17 11:41 General appearance: Present: mild distress, A&O X 3 - Eye Eye exam: Present: PERRL, conjuntiva pink, sclera anicteric Pupils: Present: PERRL - Respiratory Respiratory exam: Present: CTAB. Absent: accessory muscle use, rales, rhonchi, wheezes - Cardiovascular Cardiovascular exam: Present: RRR, +S1, +S2. Absent: diastolic murmur, gallop, rubs, systolic murmur - GI/Abdominal GI/Abdominal exam: Present: normal bowel sounds, soft, no peritoneal signs. Absent: distended, tenderness Internal Medicine: Result - Labs CBC & Chem 7: 08/06/17 03:35 08/06/17 03:35 - ABG Interpretation ABG results: PT/INR, D-dimer PT 11.6 Seconds (9.4-12.1) 08/06/17 03:35 Consult Discharge Plan - Plan Referrals: Ruben Estrada DO [Primary Care Provider] -
[2017-08-06] MEDS ORDERED: Acetaminophen IV 1,000 MG/100 ML INFUS..BTL IVPB PRN (15:42)
--- NOTE | 2017-08-06 20:45 | Oncology Inp Consult Note ---
Date of Encounter: 08/06/17 Time of Encounter: 19:00 Assessment and Plan (1) History of lung cancer Status: Chronic Assessment and plan: Metastatic adenoca, s/p chemotherapy, radiation to axillary recurrence, immunotherapy--treatments on hold for several months without obvious progression. Bowel obstruction, illeus, small bowel series not showing mechanical obstruction. He reports not being on pain meds outpt. ?Colitis from prior treatment. Check C diff/infection if stool consistent with diarrhea or bowel regimen if constipated. Lytes nl. CRF improved from prior ac on cr. Advance diet if clinically improved. On fentanyl for pain. Reconsider PPI. UA no infection. Diagnostics, labs reviewed with patient, seen evaluated bed side. - Data of Consult Requesting Physician: Levi Barrera MD Primary Care Provider: Ruben Estrada DO - Consult Narrative Reason for consult: lung ca, small bowel obstruction History of present illness: Mr. 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 She was hospitalized with abdominal pain that did not improve over a week or so followed by emesis. CT scan of the abdomen show dilated large bowels with a suspicion of partial small bowel obstruction. Patient reports not having any treatment for few months for cancer. He has minimal discomfort, has appetite, having bowel movement. Past Med Surg Social Fam HX - Past Medical History Medical history: cancer, COPD, coronary artery disease, GERD, myocardial infarction, other Psychiatric history: no psych history - Past Surgical History Surgical History: herniorrhaphy - Social History Smoking Status: Current some day smoker Smokeless Tobacco Status: No Alcohol use: occasionally Drug use: none - Family History Mother Family Member Ethnicity: Non- Living Status: Hx Family Cancer: Yes (Colon cancer.) Father Family Member Ethnicity: Non- Living Status: Hx Family Cardiac Disorders: Yes (Aneurysm) Brother Family Member Ethnicity: Non- Living Status: Hx Family Respiratory Disorders: Yes (COPD) Sister Family Member Ethnicity: Non- Living Status: Medications and Allergies Atorvastatin [Lipitor] 40 mg PO QAM 05/20/15 [History] Metoprolol XL (24 HR) Succ [Toprol Xl] 12.5 mg PO QAM #45 tab.er.24h 10/07/16 [ Rx] Paroxetine [Paxil] 30 mg PO DAILY 02/11/17 [History] Sodium Chloride 1 tab PO BID 03/25/17 [History] hydrALAZINE [HydrALAZINE] 25 mg PO TID 03/25/17 [History] Potassium Chloride [Klor-Con] 20 meq PO DAILY 04/27/17 [History] Loperamide [Imodium] 2 mg PO Q2H PRN #30 capsule 04/29/17 [Rx] Magnesium Oxide [Magnesium] 1 tab PO BID #60 tablet 05/27/17 [Rx] Omeprazole 20 mg PO DAILY #90 tablet. 05/30/17 [Rx] Thiamine (B-1) [Vitamin B-1] 100 mg PO DAILY #30 tablet 05/30/17 [Rx] Folic Acid 1 tab PO DAILY #30 tablet 06/13/17 [Rx] Pantoprazole Sodium [Protonix] 40 mg PO DAILY #30 tablet. 08/01/17 [Rx] Ferrous Sulfate [Iron] 325 mg PO DAILY #30 tablet 08/05/17 [Rx] 3 Allergy/AdvReac Type Severity Reaction Status Date / Time Penicillins [PCN] Allergy Hives Verified 08/06/17 03:10 coconut AdvReac Vomiting Verified 08/06/17 06:08 shrimp AdvReac Vomiting Verified 08/06/17 06:08 Review of systems: as per HPI otherwise negative Constitutional: Present: as per HPI Cardiovascular: Present: as per HPI Oncology - Exam - Constitutional Vitals: Temp Pulse Resp BP Pulse Ox 97.3 F L 92 16 172/97 95 08/06/17 19:20 08/06/17 19:20 08/06/17 19:20 08/06/17 19:20 08/06/17 19:20 General appearance: average body habitus - Head Head exam: Present: atraumatic, normal inspection - Eye Eye exam: Present: sclera anicteric - ENT ENT exam: Present: mucous membranes moist - Neck Neck exam: Present: full ROM - Respiratory Respiratory exam: Present: CTAB - Cardiovascular Cardiovascular exam: Present: +S1, +S2 - GI/Abdominal GI/Abdominal exam: Present: normal bowel sounds, soft, tenderness Additional comments: diffuse - Extremities Exam Extremities exam: Present: normal inspection - Neurological Exam Neurological exam: Present: alert, CN II-XII intact, oriented X3 - Psychiatric Psychiatric exam: Present: normal mood Oncology - Results Labs: renal insufficiency CT abd reviewed Consult Discharge Plan - Plan Referrals: Ruben Estrada DO [Primary Care Provider] -
[2017-08-07] MEDS ORDERED: Ringers Solution, Lactated 1,000 ML IVC SCH (04:15)
[2017-08-07 04:31] LABS: Basophils % 0.5 %; Eosinophils # 0.2 K/mcL (0.0-0.6); Eosinophils % 2.7 %; Hematocrit 32.9 % (37.5-50.1); Immature Granulocytes % 0.7 % (0-4); Lymphocytes # 0.9 K/mcL (0.6-4.6); Lymphocytes % 16.3 %; Mean Corpuscular HGB Conc 31.9 g/dL (31.6-35.5); Mean Corpuscular Hemoglobin 30.5 pg (28.0-33.3); Mean Corpuscular Volume 95.6 fL (83.0-100.0); Mean Platelet Volume 8.8 fL (9.4-12.4); Monocytes # 0.5 K/mcL (0.0-1.3); Monocytes % 8.8 %; Platelet Count 254 K/mcL (140-400); Red Blood Count 3.44 M/mcL (4.19-5.50)
[2017-08-07 04:33] LABS: Hemoglobin 10.5 g/dL (12.9-16.9)
[2017-08-07] MEDS ORDERED: *HR* Enoxaparin 30 MG/0.3 ML SYRINGE SQ SCH (06:00)
[2017-08-07 06:01] LABS: Calcium 8.9 mg/dL (8.6-10.3); Magnesium 1.3 mg/dL (1.6-2.6); Potassium 3.8 mEq/L (3.5-5.1)
--- NOTE | 2017-08-07 16:19 | Internal Med Progress Note ---
Date of Encounter: 08/07/17 Time of Encounter: 11:00 - Assessment and plan (1) Abdominal pain Current Visit: Yes Status: Acute Assessment and plan: Likely secondary to ileus.. Fentanyl due to severe headache as a side effect and use IV acetaminophen. Qualifiers: Abdominal location: generalized Qualified Code(s): R10.84 - Generalized abdominal pain (2) CKD (chronic kidney disease) Current Visit: Yes Status: Acute Assessment and plan: Creatinine has improved today to 1.86. Stop IV fluids. Avoid nephrotoxins. Baseline as 2.01. Qualifiers: Chronic kidney disease stage: stage 3 (moderate) Qualified Code(s): N18.3 - Chronic kidney disease, stage 3 (moderate) (3) COPD (chronic obstructive pulmonary disease) Current Visit: Yes Status: Acute Assessment and plan: Inhaled bronchodilators and supplemental oxygen. No evidence of exacerbation. Qualifiers: Chronic bronchitis type: simple Qualified Code(s): J41.0 - Simple chronic bronchitis (4) Lung cancer Current Visit: Yes Status: Acute Assessment and plan: Appreciate oncology recommendations. Qualifiers: Laterality: unspecified laterality Lung location: upper lobe of lung Qualified Code(s): C34.10 - Malignant neoplasm of upper lobe, unspecified bronchus or lung (5) Small bowel obstruction Current Visit: Yes Status: Ruled-out Assessment and plan: Small bowel follow-through shows contrast in the rectum at 3 hours. Today repeat abdominal x-ray shows contrast in the colon therefore ruling out a small bowel obstruction This diagnosis was ruled out. (6) DVT prophylaxis Current Visit: No Status: Acute Assessment and plan: We will switch to renally adjusted Lovenox dose due to history of cancer. (7) CKD (chronic kidney disease) stage 3, GFR 30-59 ml/min Current Visit: No Status: Chronic (8) Tobacco abuse Current Visit: No Status: Chronic Assessment and plan: I advised smoking cessation. We will provide nicotine replacement therapy. (9) Ileus Current Visit: Yes Status: Acute Assessment and plan: Abdominal pain and imaging findings likely secondary to ileus. Patient and family admits to patient using Imodium at home 2-3 times a day. We will discontinue Imodium and on discharge and educate patient and family about the side effects of Imodium. *Diet and advance slowly. - Subjective Interval history: Patient reports abdominal pain which was severe yesterday and now has resolved, still has mild discomfort. He was able to tolerate sips of water. Reports headache which was secondary to fentanyl and was severe and diffuse yesterday improved with IV acetaminophen. - Constitutional Vitals: Temp Pulse Resp BP Pulse Ox 98.5 F 79 18 122/67 97 08/07/17 14:37 08/07/17 14:37 08/07/17 14:37 08/07/17 14:37 08/07/17 14:37 General appearance: Present: mild distress, A&O X 3 - Respiratory Respiratory exam: Present: CTAB. Absent: accessory muscle use, rales, rhonchi, wheezes - Cardiovascular Cardiovascular exam: Present: RRR, +S1, +S2. Absent: diastolic murmur, gallop, rubs, systolic murmur - GI/Abdominal GI/Abdominal exam: Present: normal bowel sounds, soft, no peritoneal signs. Absent: distended, tenderness - Neurological Exam Neurological exam: Present: CN II-XII intact, oriented X3, no focal deficits. Absent: pronater drift, facial droop, speech deficit Internal Medicine: Result - Labs CBC & Chem 7: 08/07/17 03:55 08/07/17 03:55 Labs: Short CBC 08/07/17 Range/Units 03:55 WBC 5.6 (4.3-11.1) K/mcL Hgb 10.5 L D (12.9-16.9) g/dL Hct 32.9 L (37.5-50.1) % Plt Count 254 (140-400) K/mcL Neutrophils # 4.0 (1.6-8.9) K/mcL BMP 08/07/17 03:55 Sodium 139 Potassium 3.8 Chloride 108 H Carbon Dioxide 25 BUN 12 Creatinine 1.86 H Glucose 89 Calcium 8.9 - ABG Interpretation ABG results: PT/INR, D-dimer PT 11.6 Seconds (9.4-12.1) 08/06/17 03:35 - Impressions Impressions Small Bowel X-Ray 08/06/17 14:48 IMPRESSION: Contrast is seen within rectum at 90 minutes. No evidence of bowel obstruction. D/ / 08/06/2017 17:31:31 [facility] Provider: Rob Flores MD X-Ray 08/07/17 06:00 IMPRESSION: Contrast in the colon. Gas-filled small bowel in the left upper quadrant measures up to 3 cm, similar to the prior exams, without convincing evidence of obstruction. D/ / 08/07/2017 09:50:45 Nehemias Davies MD / nick Interpreting Provider: Nehemias Davies MD Consult Discharge Plan - Plan Referrals: Ruben Estrada DO [Primary Care Provider] -
[2017-08-08] MEDS ORDERED: *HR* Enoxaparin 40 MG/0.4 ML SYRINGE SQ SCH (06:00)
[2017-08-08] MEDS ORDERED: Lisinopril 20 MG TABLET PO SCH (09:00)
[2017-08-08] MEDS ORDERED: Magnesium Oxide 400 MG TABLET PO SCH (09:00)
[2017-08-08] MEDS ORDERED: Thiamine (B-1) 100 MG TABLET PO SCH (09:00)
--- NOTE | 2017-08-08 09:05 | Discharge Summary ---
Orders not resulted at time of discharge: Pending orders None Date of Encounter: 08/08/17 Time of Encounter: 09:03 - Discharge Diagnosis (1) Abdominal pain Priority: Secondary Status: Acute Qualifiers: Abdominal location: generalized Qualified Code(s): R10.84 - Generalized abdominal pain (2) CKD (chronic kidney disease) Priority: Secondary Status: Acute Qualifiers: Chronic kidney disease stage: stage 3 (moderate) Qualified Code(s): N18.3 - Chronic kidney disease, stage 3 (moderate) (3) COPD (chronic obstructive pulmonary disease) Priority: Secondary Status: Acute Qualifiers: COPD type: chronic bronchitis Chronic bronchitis type: simple Qualified Code(s): J41.0 - Simple chronic bronchitis (4) Lung cancer Priority: Secondary Status: Acute Qualifiers: Laterality: unspecified laterality Lung location: upper lobe of lung Qualified Code(s): C34.10 - Malignant neoplasm of upper lobe, unspecified bronchus or lung (5) CKD (chronic kidney disease) stage 3, GFR 30-59 ml/min Priority: Secondary Status: Chronic (6) Tobacco abuse Priority: Secondary Status: Chronic (7) Ileus Priority: Primary Status: Acute (8) Malnutrition of moderate degree Priority: Secondary Status: Acute Hospital course: Mr. 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 Imaging findings showed ileus versus small bowel obstruction. He was admitted to the medical service. He was treated conservatively. With IV fluids and nothing by mouth. He improved. He had a small bowel follow-through study which showed presence of contrast and direct him at 3 hours and therefore SBO was ruled out. On review of his medication it appeared that the patient had been taking 2-3 tablets of Imodium a day for weeks prior to presentation for treatment of chronic diarrhea. Ileus was attributed to treatment with Imodium and this medication was discontinued and the patient was instructed to not restarted on discharge. Patient tolerated clear liquid diet which was advanced to regular diet. He is currently back to baseline. He continued to have diarrhea and a C. difficile test was negative. He was prescribed Metamucil for bulking agent and will be discharged home. Discharge discussed with: patient, family Time spent discussing smoking cessation with patient: 3 to 10 minutes - Time Spent with Patient Total time spent providing and/or coordinating discharge services: Greater than 30 minutes - Discharge Medications Prescriptions: Psyllium Husk [Metamucil] 2 gm PO BID #660 powder Home Medications: Atorvastatin [Lipitor] 40 mg PO QAM 05/20/15 [History] Metoprolol XL (24 HR) Succ [Toprol Xl] 12.5 mg PO QAM #45 tab.er.24h 10/07/16 [ Rx] Paroxetine [Paxil] 30 mg PO DAILY 02/11/17 [History] hydrALAZINE [HydrALAZINE] 25 mg PO TID 03/25/17 [History] Potassium Chloride [Klor-Con] 20 meq PO DAILY 04/27/17 [History] Thiamine (B-1) [Vitamin B-1] 100 mg PO DAILY #30 tablet 05/30/17 [Rx] Pantoprazole Sodium [Protonix] 40 mg PO DAILY #30 tablet.dr 08/01/17 [Rx] Ferrous Sulfate [Iron] 325 mg PO DAILY #30 tablet 08/05/17 [Rx] Folic Acid 1 mg PO DAILY 08/07/17 [History] Lisinopril [Zestril] 20 mg PO DAILY 08/07/17 [History] Magnesium Oxide [Magnesium] 400 mg PO BID 08/07/17 [History] Psyllium Husk [Metamucil] 2 gm PO BID #660 powder 08/08/17 [Rx] Allergies/Adverse Reactions: 3 Allergy/AdvReac Type Severity Reaction Status Date / Time Penicillins [PCN] Allergy Hives Verified 08/06/17 03:10 coconut AdvReac Vomiting Verified 08/06/17 06:08 shrimp AdvReac Vomiting Verified 08/06/17 06:08 Date of admission: 08/06/17 05:35 Primary care physician: Ruben Estrada DO - Constitutional Vitals: Temp Pulse Resp BP Pulse Ox 97.9 F 106 15 154/83 96 08/08/17 06:44 08/08/17 06:44 08/08/17 06:44 08/08/17 06:44 08/08/17 06:44 General appearance: Present: mild distress, A&O X 3 - Respiratory Respiratory exam: Present: CTAB. Absent: accessory muscle use, rales, rhonchi, wheezes - Cardiovascular Cardiovascular exam: Present: RRR, +S1, +S2. Absent: diastolic murmur, gallop, rubs, systolic murmur - GI/Abdominal GI/Abdominal exam: Present: normal bowel sounds, soft, no peritoneal signs. Absent: distended, tenderness - Patient Status Disposition: Home, Self-Care Condition: Good Functional capacity at discharge: independent ambulation Overall status at discharge: patient is progressing back to baseline - Discharge Instructions Instructions: Bowel Obstruction (DC) Follow Up With: Michael Long DO [Resident] - 08/16/17 1:30 pm Additional Instructions: Stop taking Imodium. Start taking Metamucil 2 tablespoons twice daily to help with diarrhea. Can increase to 4 tablespoons twice daily as needed for diarrhea. Follow-up with PCP in 1 week of discharge. - Diet and Activity Activity: increase activity as tolerated Diet: low salt diet (High-calorie diet)
[2017-08-08 10:46] VITALS: BP 164/83
--- NOTE | 2017-08-09 06:59 | Electrocardiograph Report ---
[address] [place] [address] Test Date: 2017-08-06 Pat Name: Erik Jimenez Department: 103 Room: 3A Gender: M Dramatic Teacher: MARY : 1960 Requested By: Maritza Bey Order Number: [id number] Reading MD: Eric Carey MD Measurements Intervals [place] Rate: 79 P: 71 SD: 133 QRS: 24 QRSD: 99 T: 63 QT: 375 QTc: 410 Interpretive Statements SINUS RHYTHM INCOMPLETE RIGHT BUNDLE BRANCH BLOCK BASELINE ARTIFACT Electronically Signed On 08-09-2017 6:57:26 EDT by Eric Carey MD
== END 2017-08-08 15:05 | disposition home or self-care (01) | DRG 247 ==
LOC: EMEROO 03:08 → 3ANU 03:08 → SUATTDRO 05:35 → 3ANU 05:48
PROVIDERS: ADMIT Internal Medicine Hematology & Oncology; ATTEND Internal Medicine